=== PATIENT | female | born 1960 | race African-American/Black ===

== ENCOUNTER 2017-01-15 22:42 | Inpatient (IN) ==
[2017-01-15] MEDS ORDERED: ZOFRAN IV ONE (23:09)
[2017-01-15] MEDS ORDERED: NS 500 ML IV ONE (23:09)
[2017-01-15] MEDS ORDERED: DILAUDID IV ONE (23:09)
[2017-01-15 23:33] LABS: MANUAL DIFF NEEDED? NO
[2017-01-15 23:50] LABS: BASO% 0.4 % (0.0-0.8); EOS# 0.22 X1000 (0.0-0.7); EOS% 2.9 % (0.0-10.0); HEMATOCRIT 30.6 % (37.0-47.0); HEMOGLOBIN 9.8 g/dL (12.0-16.0); IMM GRAN# 0.01 X1000 (0.0-0.04); IMM GRAN% 0.1 % (0.0-0.5); LYMPH# 3.08 X1000 (1.2-3.4); LYMPH% 40.4 % (20.5-51.1); MCH 26.6 PG (27-31); MCV 82.9 FL (81-99); MONO% 10.5 % (1.7-9.3); MPV 9.1 FL (7.4-10.4); NEUT% 45.7 % (42.2-75.2); PLT 310 X1000 (130-400); RBC 3.69 XMIL (4.2-5.4)
[2017-01-16 00:04] LABS: ALBUMIN 4.3 g/dL (3.5-5.0); CALCIUM 9.5 mg/dL (8.8-10.2); POTASSIUM 4.3 mmol/L (3.5-5.1); TOTAL BILIRUBIN 0.3 mg/dL (0.20-1.00); TOTAL PROTEIN 8.1 g/dL (6.3-8.3)
[2017-01-16 00:53] LABS: BILIRUBIN URINE NEGATIVE (NEGATIVE); BLOOD URINE NEGATIVE (NEGATIVE); CLARITY CLEAR (CLEAR); COLOR YELLOW; GLUCOSE URINE NEGATIVE (NEGATIVE); LEUKOCYTES URINE NEGATIVE (NEGATIVE); NITRITE URINE NEGATIVE (NEGATIVE); PROTEIN URINE TRACE mg/dL (NEGATIVE); SP GRAVITY URINE 1.015; URINE EPITHELIAL CELLS <10 /HPF (<10); URINE RBC <10 /HPF (<10); URINE WBC <10 /HPF (<10); UROBILINOGEN URINE NORMAL
[2017-01-16 00:54] LABS: URINE CULTURE PL NEEDED? YES; URINE SOURCE CLEAN CATCH
[2017-01-16] MEDS ORDERED: ZOFRAN IV PRN (01:42)
[2017-01-16] MEDS ORDERED: NS 1,000 ML IV ONE (01:42)
--- NOTE | 2017-01-16 01:42 | PROVIDER DOCUMENTATION ---
This chart was entered by Laisha Barnes Scribe, acting as scribe for James Hernandez MD. HPI-Abdominal Pain/GI Problem - General Chief Complaint: Epigastric Pain Stated Complaint: ABD PAIN Time Seen by Provider: 01/15/17 22:57 Source: patient Allergies/Adverse Reactions: Patient Allergies Allergy/AdvReac Type Severity Reaction Status Date / Time No Known Allergies Allergy Verified 01/15/17 22:50 Home Medications: Home Medication List Medication Instructions Recorded Confirmed Last Taken Type Hydrocodone/APAP 7.5 mg/325 mg 01/05/17 01/15/17 History [[place]-7.5] Levothyroxine [Synthroid] 01/05/17 01/15/17 History Losartan/Hydrochlorothiazide 01/05/17 1 Day Ago History [Losartan-Hctz 100-12.5 mg Tab] ATORVAstatin [Lipitor] 20 mg PO QHS 01/15/17 01/15/17 1 Day Ago History Carisoprodol [Carisoprodol] 01/15/17 01/15/17 History Hydroxyzine HCl [Hydroxyzine HCl] 01/15/17 1 Day Ago History Meloxicam [Meloxicam] 01/15/17 01/15/17 History Metoprolol Succinate E.r. [Toprol 50 mg PO 01/15/17 01/15/17 History Xl] Venlafaxine [Effexor] 01/15/17 1 Day Ago History - History of Present Illness-ABD Nature of Presenting Problems: 56 year old F presents to the ED with a cc of epigastric ABD pain with an onset of 2 days ago with nausea and vomiting. PT states that at onset she had just started taking Mobic. PT states that she had 2 episodes of strenuous vomiting but has resolved. PT states that she is still having nausea. Abdominal Pain Onset Location: reports: epigastric Pain Radiation: reports: scapula (right) Quality of Pain: reports: throbbing Severity in ED: reports: moderate Onset/Duration: reports: 2 days ago Timing: reports: still present Activities at Onset: reports: none Modifying Factors: improves with: eating (eating ice) Associated Symptoms: reports: nausea, vomiting Bruising or Bleeding Gums?: No Similar Symptoms Previously?: No Recently seen or treated by another doctor?: No Review of Systems - Adult - REVIEW OF SYSTEMS - ADULT Constitutional: denies: chills, fever Eyes: reports: no symptoms reported Ears, Nose, Mouth & Throat: reports: no symptoms reported Cardiovascular: denies: chest pain, palpitations Respiratory: denies: cough, shortness of breath Gastrointestinal: reports: abdominal pain, nausea, vomiting. denies: diarrhea Genitourinary: denies: dysuria, hematuria Musculoskeletal: reports: no symptoms reported Integumentary: reports: no symptoms reported Neurological: reports: no symptoms reported Psychiatric: reports: no symptoms reported Endocrine: reports: no symptoms reported Hematologic/Lymphatic: reports: no symptoms reported Allergic/Immunologic: reports: no symptoms reported All Other Systems: Reviewed and Negative Past History - Adult - PAST MEDICAL HISTORY-ADULT Review of Records: reports: Nursing Assessment Review, Medications Reviewed Major Childhood Illnesses: reports: denies history Cardiovascular: reports: HTN Respiratory: reports: denies history Gastrointestinal: reports: denies history Obstetrical/Gynecological: reports: denies history Genitourinary: reports: denies history Musculoskeletal: reports: orthopedic injury Neurological: reports: denies history Endocrine/Immune: reports: Diabetes Other Conditions: reports: other (RA, migraines, chronic pain) - PRIOR SURGERIES/PROCEDURES Surgical/Procedure History: reports: hysterectomy, other (foot ) - IMMUNIZATION STATUS Childhood Immunizations: See Nurse Assessment Flu Vaccine: See Nurse Assessment - FAMILY HISTORY Family History: reviewed, not pertinent - SOCIAL HISTORY Smoking: non-smoker Substance Use: none/never Alcohol Use Frequency: never Physical Exam-General - PHYSICAL EXAM-ADULT Initial Vital Signs Reviewed: Yes - CONSTITUTIONAL General Appearance: appears well, alert, no apparent distress - RESPIRATORY Respiratory: chest non-tender, lungs clear, normal breath sounds - CARDIOVASCULAR Cardiovascular: normal peripheral pulses, regular rate, rhythm, no edema - GASTROINTESTINAL (ABDOMEN) Abdominal Exam: normal bowel sounds, soft, tenderness (RUQ) - MUSCULOSKELETAL Back Exam: normal inspection, no CVA tenderness, no vertebral tenderness - SKIN Integumentary: normal color, normal turgor, warm/dry - PSYCHIATRIC Psych/Mental Status: normal mood/affect, normal thought content, normal thought process, oriented x 3 Progress - PLAN OF CARE/RESULTS Progress/Plan/Lab Results: Vital Signs - 8 hr 01/15/17 22:48 Temperature 97.2 F L Pulse Rate 106 H Respiratory Rate 20 Blood Pressure 156/91 O2 Sat by Pulse Oximetry 100 Result Diagrams: 01/15/17 23:30 01/15/17 23:30 - REASSESSMENT Reassessment #1 Time Reassessed: 00:42 (pain much better) Status: improving - XRAY 1 XRAY Study: Abdomen Impression: Abnormal XRAY Interpretation: constipation, otherwise negative: Dr. Hernandez(ER MD) - CT/MRI 1 CT Study: Abdomen Impression: Normal Departure - Departure Date of Disposition Decision: 01/16/17 Time of Disposition Decision: 01:41 DIAGNOSIS: Pancreatitis Qualifiers: Chronicity: acute Pancreatitis type: unspecified pancreatitis type Acute pancreatitis complication: no infection or necrosis Qualified Code(s): K85.90 - Acute pancreatitis without necrosis or infection, unspecified Disposition: ADMITTED INPATIENT 09 Certified Medical Emergency: Emergent Condition: Good Referrals and Follow-Ups: Jos Cade MD [Primary Care Provider] - Work Excuses: Return to School/Parent Work - Critical Care Note This patient required my direct & personal management of CC.: No This chart was documented by the indicated scribe, (Laisha Barnes Scribe) and accurately reflects the services I performed and decisions made by me, James Hernandez MD, as attested by the provider's signature.
[2017-01-16] MEDS: DILAUDID IV PRN ×3 (02:26→17:26)
--- NOTE | 2017-01-16 07:36 | Diag Imaging Result Doc PS360 ---
EXAM: FLAT/UPRIGHT ABD/1 VIEW CHEST HISTORY: upper abd pain TECHNIQUE: PA chest and flat and upright abdomen COMMENT: There is some stool present in the colon particularly the ascending colon. The small bowel and stomach are not distended. There is no evidence of organomegaly or mass. Compared to 09/05/2016 the appearance of the abdomen is similar. CHEST: Normal chest. IMPRESSION: Constipation. Electronically signed by Rush Beckwith 01/16/2017 7:33 AM
--- NOTE | 2017-01-16 07:48 | Diag Imaging Result Doc PS360 ---
EXAM: ABDOMEN/PELVIS W/O CONTRAST HISTORY: pancreatitis/? GB TECHNIQUE: CT urogram without contrast. COMMENT: The current study is compared with the previous examination of 04/28/2015. No acute abnormalities are demonstrated in the visualized portion of the chest. There are no stones seen in the kidneys. No gallstones are identified. There is no evidence of para cholecystic fluid. Some of dense material is present in the colon, however there is no history of recent barium or oral contrast administration and this may be due to other ingested material. There is a fair amount of stool throughout the colon. The small bowel is not distended. There is no evidence of appendicitis. There is diverticulosis in the descending colon without evidence of diverticulitis. The urinary bladder is unremarkable. There is no evidence of free fluid. The pancreas is grossly normal considering the lack of IV contrast. IMPRESSION: No evidence of nephrolithiasis or obstructive uropathy. No evidence of cholelithiasis or cholecystitis. No evidence of pancreatitis, within the limitations of the noncontrast technique. Electronically signed by Rush Beckwith 01/16/2017 7:46 AM
--- NOTE | 2017-01-16 11:14 | Diag Imaging Result Doc PS360 ---
EXAM: US GB < RUQ (LIMITED) HISTORY: ruq pain TECHNIQUE: Right upper quadrant ultrasound COMMENT: There are no focal abnormalities in the pancreas. The visualized portions of the aorta and inferior vena cava are within normal limits. There are no definite hepatic abnormalities. There is no evidence of biliary dilatation the common bile duct measuring 5 mm. There is antegrade flow in the portal vein. The gallbladder is clear and nontender. The right kidney is without evidence of hydronephrosis or mass. No abnormal fluid collections are present. The kidney is somewhat hyperechoic in appearance. IMPRESSION: Possibility of medical renal disease cannot be excluded. Otherwise no evidence of acute disease. Electronically signed by Rush Beckwith 01/16/2017 11:12 AM
--- NOTE | 2017-01-16 11:50 | HISTORY AND PHYSICAL ---
PRIMARY CARE PHYSICIAN: Dr. Cade. CHIEF COMPLAINT: Right upper quadrant epigastric pain. HISTORY OF PRESENT ILLNESS: This is a 56-year-old, female who presented to the emergency room complaining of 2 days of epigastric pain, nausea, and vomiting. She states that she started taking Mobic at this time. She describes the pain as a squeezing and throbbing type pain that is just under her right ribcage that extends from the lower ribs across. She is tender to palpation. She states this is exacerbated by food. It does decrease in severity an hour so after eating. She states that over the day during the day prior to coming into the emergency room, she was unable to hold any p.o. intake down. She states that she had 2 episodes of strenuous vomiting. Of note, she did begin Mobic during those 2 days. She denies any prior history of abdominal pain. She was noted to have a lipase of 217. CT scan revealed no evidence of cholelithiasis or cholecystitis. No evidence of pancreatitis. She was given IV hydration and Zofran, and admitted for further evaluation and treatment. PAST MEDICAL HISTORY: Diabetes mellitus, hypertension, fibromyalgia. PAST SURGICAL HISTORY: Hysterectomy and back surgery. SOCIAL HISTORY: She denies alcohol, tobacco, or illicit drug use. ALLERGIES: No known drug allergies. HOME MEDICATIONS: A list will be obtained. REVIEW OF SYSTEMS: A 14 point review of systems is discussed with the patient with pertinent positives as stated in the HPI. She denies chest pain, palpitations, syncope, dizziness, shortness of breath, fever, chills, PND, orthopnea, black or bloody vomitus, constipation, diarrhea, black or bloody stools, any hematuria, dysuria, frequency, urgency. PHYSICAL EXAMINATION: GENERAL: This is a 56-year-old, female who is sitting up in the bed, in no distress. VITAL SIGNS: Blood pressure is 137/88, with a heart rate of 96, respirations are 18, temperature is 97.7 degrees, with room air saturations of 100%. HEENT: Head is normocephalic, atraumatic. Pupils are equal, round, and react to light. EOMs are intact. Sclerae are anicteric. Mucous membranes are moist. NECK: Supple. Trachea midline. CARDIOVASCULAR: Regular rate and rhythm. S1 and S2 are appreciated. PULMONARY: Breath sounds are clear with no increased work of breathing noted. GASTROINTESTINAL: Abdomen is soft, nondistended. It is tender to palpation at the right upper quadrant to the epigastric area with bowel sounds in all 4 quadrants. MUSCULOSKELETAL: Good range of motion of joints. EXTREMITIES: No clubbing, cyanosis, or edema. Calves are nontender. Pulses are palpable x4. NEUROLOGIC: She is alert and oriented x3 with cranial nerves 2-12 grossly intact. DIAGNOSTICS: WBC is 7.6, with a hemoglobin of 9.8, hematocrit of 30.6, and platelets of 310,000. Sodium is 135, potassium 4.3, BUN 38, creatinine 1.8, with a glucose of 158. Lipase is 217. CT scan revealed no acute abnormalities. Flat and upright revealed constipation. Chest x-ray was normal. ASSESSMENT AND PLAN: 1. Nausea and vomiting. She will remain nothing per oral. We will continue with intravenous hydration and intravenous antiemetics. 2. Right upper quadrant pain. She continues to be tender to palpation. The pain is waxing and waning. We will get an ultrasound of the gallbladder this morning. 3. Type 2 diabetes. 4. Hypothyroid. 5. Chronic pain. 6. Chronic kidney disease. 7. She will continue on the medical-surgical floor. We will continue with intravenous hydration, pain and nausea control. Her elevated lipase certainly could be from strenuous vomiting. We will repeat her labs and follow. Dictated by ANÍBAL Ahuja for Antonio Sanchez MD cc: ANÍBAL Ahuja MD
[2017-01-16] MEDS: PRILOSEC PO SCH ×2 (11:52→20:06)
[2017-01-16] MEDS ORDERED: G.I. COCKTAIL PO ONE (15:24)
[2017-01-16] MEDS: HUMALOG DOSE (PARKWAY) SUBQ SCH ×2 (16:06→21:47)
[2017-01-16] MEDS: CARAFATE LIQUID PO SCH (20:06)
[2017-01-17] MEDS: CARAFATE LIQUID PO SCH ×2 (01:09→08:46)
[2017-01-17] MEDS: DILAUDID IV PRN ×3 (01:12→06:36)
[2017-01-17 06:25] LABS: HEMATOCRIT 29.1 % (37.0-47.0); MCH 25.8 PG (27-31); MCHC 30.9 g/dL (33-37); MCV 83.4 FL (81-99); MPV 8.9 FL (7.4-10.4); RBC 3.49 XMIL (4.2-5.4)
[2017-01-17] MEDS: PRILOSEC PO SCH (06:30)
[2017-01-17 06:43] LABS: ALBUMIN 4.3 g/dL (3.5-5.0); CALCIUM 9.8 mg/dL (8.8-10.2); POTASSIUM 4.9 mmol/L (3.5-5.1); TOTAL BILIRUBIN 0.3 mg/dL (0.20-1.00); TOTAL PROTEIN 7.8 g/dL (6.3-8.3)
[2017-01-17] MEDS: HUMALOG DOSE (PARKWAY) SUBQ SCH ×2 (07:42→11:14)
[2017-01-17 08:15] VITALS: BP 139/75
--- NOTE | 2017-01-17 19:05 | DISCHARGE SUMMARY ---
ADMISSION DATE: 01/16/2017 DISCHARGE DATE: 01/17/2017 PRIMARY CARE PHYSICIAN: Jos Cade MD. ADMISSION DIAGNOSES: 1. Nausea and vomiting. 2. Right upper quadrant pain. 3. Diabetes type 2. 4. Hypothyroidism. 5. Chronic pain. 6. Chronic kidney disease. DISCHARGE DIAGNOSES: 1. Nausea and vomiting resolved. 2. Right upper quadrant pain improved. 3. Diabetes type 2. 4. Hypothyroidism. 5. Chronic pain. 6. Chronic kidney disease. SUMMARY OF FINDINGS: This is a 56-year-old, female who presented to the emergency room with complaints of a 2-day history of epigastric abdominal pain, nausea and vomiting. She states that she recently started Mobic and that the pain began a short time after beginning this. She described the pain as a squeezing and throbbing type pain underneath her right rib cage that extended from the lower ribs across. It was tender to palpation. It was exacerbated by food. She had a decrease in severity an hour so after eating and had 2 episodes of strenuous vomiting. She had a CT scan of the abdomen and pelvis that revealed no evidence of cholelithiasis or cholecystitis. No evidence of pancreatitis. She was given IV hydration, Zofran and admitted. We did an abdomen ultrasound that showed the possibility of a medical renal disease could not be excluded but otherwise no evidence of acute disease noted. Patient is tolerating her full liquid diet at this time with no further nausea or vomiting. It is felt this is most likely a gastroenteritis secondary to her Mobic. She has been instructed to not use any aspirin or NSAID products. Patient verbalizes understanding. She will need an outpatient GI workup and it is felt at this time she can safely be discharged home. We will give her a prescription for Carafate 1 g 4 times daily #120 with no refills and omeprazole 40 mg 1 p.o. b.i.d. #60 with 2 refills. She will continue her Lipitor 20 mg p.o. at bedtime, [place] 350 mg as directed, [place] 7.5 as directed, hydroxyzine 25 mg as directed, levothyroxine 200 mcg p.o. daily, losartan/hydrochlorothiazide 100/12.5, 1 p.o. daily, metoprolol 50 mg p.o. daily, Effexor 37.5 mg p.o. daily. FOLLOWUP: She will need to follow up with her primary care physician in 1-2 weeks and at that time they will discuss her outpatient GI workup. TOTAL TIME SPENT ON DISCHARGE: 35 minutes. Dictated by ANÍBAL Mckeon for Antonio Sanchez MD cc: ANÍBAL Mckeon MD Adnan A. Seljuki, MD
== END 2017-01-17 11:59 | disposition home or self-care (01) ==
LOC: P.ED 22:42 → P.MEDSURG 01-16 01:53
PROVIDERS: ATTEND Family Medicine

== ENCOUNTER 2017-05-01 20:16 | Inpatient (IN) ==
[2017-05-01] MEDS ORDERED: ASPIRIN PO ONE (20:27)
[2017-05-01 20:45] LABS: MANUAL DIFF NEEDED? NO
--- NOTE | 2017-05-01 20:47 | EKG Report ---
Test Performed on : 05/01/2017 8:43:22 PM Test Reason : palpitations Blood Pressure : / mmHG Vent. Rate : 111 BPM Atrial Rate : 111 BPM P-R Int : 154 ms QRS Dur : 070 ms QT Int : 336 ms P-R-T Axes : 044 -18 076 degrees QTc Int : 456 ms Sinus tachycardia. Minimal voltage criteria for LVH, may be normal variant Borderline ECG When compared with ECG of 19-DEC-2008 10:04, Vent. rate has increased BY 56 BPM Nonspecific T wave abnormality no longer evident in Inferior leads Nonspecific T wave abnormality, improved in Lateral leads Unconfirmed Result
[2017-05-01 20:51] LABS: BASO% 0.5 % (0.0-0.8); HEMATOCRIT 36.4 % (37.0-47.0); HEMOGLOBIN 11.8 g/dL (12.0-16.0); IMM GRAN# 0.01 X1000 (0.0-0.04); IMM GRAN% 0.1 % (0.0-0.5); MCH 25.9 PG (27-31); MCHC 32.4 g/dL (33-37); MONO# 0.79 X1000 (0.11-0.59); MONO% 7.9 % (1.7-9.3); MPV 9.5 FL (7.4-10.4); NEUT% 57.5 % (42.2-75.2); PLT 410 X1000 (130-400); RBC 4.55 XMIL (4.2-5.4)
[2017-05-01 21:20] LABS: ALBUMIN 4.4 g/dL (3.5-5.0); CALCIUM 9.9 mg/dL (8.8-10.2); MAGNESIUM 1.7 mg/dL (1.5-2.7); POTASSIUM 5.9 mmol/L (3.5-5.1); TOTAL BILIRUBIN 0.2 mg/dL (0.20-1.00); TOTAL PROTEIN 9.1 g/dL (6.3-8.3)
[2017-05-01] MEDS ORDERED: HUMULIN R (PARKWAY) SUBQ ONE (21:30)
[2017-05-01] MEDS ORDERED: HUMULIN R (PARKWAY) ONE (21:33)
[2017-05-01] MEDS ORDERED: LOPRESSOR IV ONE (21:53)
[2017-05-01] MEDS ORDERED: DILAUDID IV ONE (21:54)
--- NOTE | 2017-05-01 22:07 | Diag Imaging Result Doc PS360 ---
EXAM: CHEST-2 VIEWS HISTORY: palpitations cp TECHNIQUE: Two views COMPARISON: 01/15/2017 FINDINGS: The lungs are well expanded. The heart is not enlarged. The vessels are not distended. There are no infiltrates. No pleural effusions. IMPRESSION: No acute abnormality. Electronically signed by Pavan Kemp 05/01/2017 10:05 PM
[2017-05-01 22:29] LABS: BE -2.2 mmoll (-3.0-3.0); BLOOD TYPE ARTERIAL; DRAW SITE L RADIAL; METHB 1.2 % (0.0-1.5); O2(CT) 17.9 mL/dL (15.0-23.0); PCO2(98.6) 41 mmHg (35-45); PO2(98.6) 208 mmHg (60-100); SAMPLE BLOOD; SAO2 100.6 % (95.0-100.0); THB 12.7 g/dL (11.5-17.4); pH(98.6) 7.36 (7.35-7.45)
[2017-05-01 22:31] LABS: ALLEN TEST YES; MODALITY CANNULA
--- NOTE | 2017-05-01 23:09 | PROVIDER DOCUMENTATION ---
HPI-Chest Pain - General Chief Complaint: Palpitations Stated Complaint: CHEST PAIN/BLOOD PRESSURE Time Seen by Provider: 05/01/17 21:30 Source: patient Allergies/Adverse Reactions: Patient Allergies Allergy/AdvReac Type Severity Reaction Status Date / Time No Known Allergies Allergy Verified 01/15/17 22:50 Home Medications: Home Medication List Medication Instructions Recorded Confirmed Last Taken Type Hydrocodone/APAP 7.5 mg/325 mg 1 tab PO Q6H PRN 01/05/17 05/02/17 01/15/17 History [[place]-7.5] Levothyroxine [Synthroid] 175 mcg PO DAILY 01/05/17 05/01/17 01/15/17 History Losartan/Hydrochlorothiazide 100 mg PO DAILY 01/05/17 05/01/17 1 Day Ago History [Losartan-Hctz 100-12.5 mg Tab] Carisoprodol 1 tab PO TID PRN 01/15/17 05/01/17 01/15/17 History Hydroxyzine HCl 1 tab PO TID PRN 01/15/17 05/01/17 1 Day Ago History Venlafaxine [Effexor] 100 mg PO BID 01/15/17 05/01/17 1 Day Ago History Omeprazole [Prilosec] 40 mg PO BID@0700,2100 #60 capsule 01/17/17 05/01/17 Unknown Rx Sucralfate [Carafate] 1 gm PO 4XDAY #120 tablet 01/17/17 05/01/17 Unknown Rx Amlodipine [Norvasc] 1 tab PO DAILY 05/01/17 05/01/17 Unknown History Aspirin 1 tab PO DAILY 05/01/17 05/01/17 Unknown History Benzonatate [Tessalon [place]] 1 tab PO PRN PRN 05/01/17 05/01/17 Unknown History Ferrous Sulfate [[place]] 1 tab PO BID 05/01/17 05/01/17 Unknown History Fluticasone 50 Mcg Nasal [place] 1 spray IH DAILY 05/01/17 05/01/17 Unknown History [Flonase] Insulin Glargine,Hum.rec.anlog 30 units SQ DAILY 05/01/17 05/01/17 05/01/17 13: 30 History [Zhao Kirk] Loratadine [Claritin] 1 tab PO DIRECTED 05/01/17 05/01/17 Unknown History Metoprolol [Lopressor] 1 tab PO DAILY 05/01/17 05/01/17 Unknown History Ondansetron [Zofran] 1 tab PO Q4H PRN 05/01/17 05/01/17 Unknown History Pyridoxine HCl [Vitamin B-6] 1 tab PO DAILY 05/01/17 05/01/17 Unknown History Simethicone [Mytab Gas] 1 tab PO DIRECTED 05/01/17 05/01/17 Unknown History Sitagliptin Phos/Metformin HCl 1 tab PO BID 05/01/17 05/01/17 05/01/17 13:30 History [Janumet 50-1,000 mg Tablet] - History of Present Illness-CP Nature of Presenting Problem: Patient is a pleasant 56 y yrs old lady who has come with abdominal pain , chest pain and overall feeling weakness. She states that she was doing alright till Tuesday when she started having abdominal pain which was radiating to the chest. Then she started having pain radiated to the chest. Has been feeling some weakness and tiredness. No other complaint. Review of Systems - Adult - REVIEW OF SYSTEMS - ADULT Constitutional: reports: see HPI Eyes: reports: no symptoms reported Ears, Nose, Mouth & Throat: reports: no symptoms reported Cardiovascular: reports: see HPI Respiratory: reports: no symptoms reported Gastrointestinal: reports: no symptoms reported Past History - Adult - PAST MEDICAL HISTORY-ADULT Major Childhood Illnesses: reports: denies history Cardiovascular: reports: HTN Respiratory: reports: denies history Gastrointestinal: reports: denies history Obstetrical/Gynecological: reports: denies history Genitourinary: reports: denies history Musculoskeletal: reports: orthopedic injury Neurological: reports: denies history Endocrine/Immune: reports: Diabetes Other Conditions: reports: other (RA, migraines, chronic pain) - PRIOR SURGERIES/PROCEDURES Surgical/Procedure History: reports: hysterectomy, other (foot ) - IMMUNIZATION STATUS Childhood Immunizations: See Nurse Assessment Flu Vaccine: See Nurse Assessment - FAMILY HISTORY Family History: reviewed, not pertinent Physical Exam-General - CONSTITUTIONAL General Appearance: mild distress - EYES Eyes: PERRL/EOMI, pink conjunctivae - HEAD, EARS, NOSE, MOUTH & THROAT HENMT: normocephalic/atraumatic - NECK Neck: non-tender, full range of motion - RESPIRATORY Respiratory: chest non-tender, lungs clear - CARDIOVASCULAR Cardiovascular: regular rate, rhythm, no edema - GASTROINTESTINAL (ABDOMEN) Abdominal Exam: soft, tenderness, other - LYMPHATIC Lymphatic: no adenopathy - MUSCULOSKELETAL Back Exam: normal inspection, no CVA tenderness Extremity: normal range of motion, non-tender - SKIN Integumentary: normal color, normal turgor, warm/dry - NEUROLOGIC Neurologic: grossly normal - PSYCHIATRIC Psych/Mental Status: normal mood/affect, normal thought process, oriented x 3 Progress - PLAN OF CARE/RESULTS Progress/Plan/Lab Results: Laboratory Results - last 24 hr 05/02/17 00:45 Estimat Average Glucose 298 Hemoglobin A1c 12.0 H Orders Category Date Time Status Admit - [facility] Routine AdmDCTranf 05/02/17 00:37 Ordered Activity - Up Ad Olga ORDERED Care 05/02/17 00:37 Active Blood Glucose Finger Stick [FSBS/Accucheck Result] Q2HR Care 05/02/17 03:03 Active Call Admitting on Arrival AT ADMISSION Care 05/02/17 00:38 Active Cardiac Monitoring DIRECTED Care 05/01/17 20:27 Completed DVT/PE Risk Assess/Protocol [QM] ORDERED Care 05/02/17 00:37 Active Neurological Check ORDERED Care 05/02/17 00:37 Active Notify MD if DIRECTED Care 05/02/17 00:37 Active Nursing- Obtain EKG once Care 05/01/17 20:27 Completed Saline Loc DIRECTED Care 05/02/17 00:37 Active Vital Signs Order Q 4-HR ASSESS Care 05/02/17 00:37 Active Z-Document. for Tele Applied ORDERED Care 05/02/17 00:38 Completed NPO Diet 05/02/17 00:39 Completed CHEST-2 VIEWS [RAD] Stat Exams 05/01/17 20:27 Completed CHEST-2 VIEWS [RAD] Stat Exams 05/02/17 06:00 Completed ABG [RESP] Routine Lab 05/01/17 22:02 Completed ABG [RESP] Routine Lab 05/02/17 00:10 Completed CBC WITH DIFF [HEME] Stat Lab 05/01/17 20:41 Completed CBC WITH NO DIFF [HEME] Routine Lab 05/03/17 05:40 Received CK PROFILE [SP CHEM] Stat Lab 05/01/17 20:41 Completed COMPREHENSIVE METABOLIC PANEL [CHEM] Stat Lab 05/01/17 20:41 Completed COMPREHENSIVE METABOLIC PANEL [CHEM] Stat Lab 05/02/17 00:45 Completed D-DIMER PL [COAG] Stat Lab 05/01/17 20:41 Completed LIPID PROFILE W/DIR LDL [LIPIDS] Routine Lab 05/03/17 05:40 Received MAGNESIUM [CHEM] Stat Lab 05/01/17 20:41 Completed PRO B-NATRIURETIC PEPTIDE Routine Lab 05/03/17 05:40 Received PRO B-NATRIURETIC PEPTIDE Stat Lab 05/01/17 20:41 Completed TROPONIN T Q8H Lab 05/02/17 09:22 Completed TROPONIN T Q8H Lab 05/02/17 17:05 Completed TROPONIN T Stat Lab 05/01/17 20:41 Completed TROPONIN T Stat Lab 05/02/17 00:45 Completed 0.9% Sodium Chloride Inj [Ns] 1,000 ml Med 05/01/17 23:27 Discontinued .ROUTE As Directed 0.9% Sodium Chloride Inj [Ns] 1,000 ml Med 05/02/17 00:37 Discontinued IV 100 mls/hr 0.9% Sodium Chloride Inj [Ns] 1,000 ml Med 05/01/17 23:25 Discontinued IV 999 mls/hr Acetaminophen [Tylenol] Med 05/02/17 00:37 Active 650 mg PO Q6H PRN PRN Aspirin Med 05/01/17 20:27 Discontinued 325 mg PO NOW ONE Heparin Med 05/02/17 00:45 Active 5,000 unit SUBQ Q8HR Hydrocodone/APAP 7.5 mg/325 mg [[place]-7.5] Med 05/02/17 00:36 Discontinued 1 each PO NOW ONE Hydromorphone [Dilaudid] Med 05/01/17 21:54 Discontinued 0.5 mg IV NOW ONE Insulin Human Regular ([place] [Humulin R ([place])] Med 05/01/17 21:33 Discontinued 1 units .ROUTE .STK-MED ONE Insulin Human Regular ([place] [Humulin R ([place])] Med 05/01/17 21:30 Discontinued 6 units SUBQ NOW ONE Insulin Human Regular [Humulin R] Med 05/01/17 23:23 Discontinued 6 unit SUBQ NOW ONE Insulin Lispro [Humalog] Med 05/02/17 00:58 Discontinued See Dose Instructions SUBQ NOW ONE Metoprolol [Lopressor] Med 05/01/17 21:53 Discontinued 5 mg IV NOW ONE Nitroglycerin Sl [Nitroglycerin] Med 05/02/17 00:37 Active 0.4 mg SL Q5M PRN PRN Omeprazole [Prilosec] Med 05/02/17 07:00 Discontinued 20 mg PO DAILY@0700 Ondansetron [Zofran] Med 05/02/17 00:37 Active 4 mg IV Q4H PRN PRN Oxygen Device Routine Oth 05/02/17 00:37 Active Oxygen Device Routine Oth 05/02/17 00:38 Active Telemetry [OM.EQ] Routine Oth 05/02/17 00:37 Active Telemetry [OM.EQ] Routine Oth 05/02/17 00:37 Active EKG [EKG] Stat Ther 05/01/17 20:27 Draft Echo Spec/Color Dop W/O Contra Routine Ther 05/02/17 00:37 Completed Transfer/Admit Order [TRANSFER] Routine Transfer 05/02/17 00:42 Completed Admitting patient for the Chest pain rule out and Hyperglycemia and GRACIA. Given IV fluid here and total of 12 Units of Insulin Regular here. Checking CMP , result pending. Had discussed with Dr. Sanchez and he had agreed for admission . Dr. Osei will follow up on the labs and then admit plan finalized accordingly . 1:10 am05/02 . Result Diagrams: 05/01/17 20:41 05/02/17 17:05 Departure - Departure Date of Disposition Decision: 05/02/17 Time of Disposition Decision: 01:00 DIAGNOSIS: Chest pain, Hyperglycemia Disposition: ADMITTED INPATIENT 09 Certified Medical Emergency: Urgent Condition: Stable - Critical Care Note This patient required my direct & personal management of CC.: No Attestation - Physician/ NICKY Attestation Patient care was provided by Advanced Practice Provider:: No The physician spent face to face time with patient:: Yes Advanced Practice Provider documentation review:: Supervising physician onsite and consulted in the evaluation and care of this patient. The physician did have a face to face encounter with the patient.
[2017-05-01] MEDS ORDERED: HUMULIN R SUBQ ONE (23:23)
[2017-05-01] MEDS ORDERED: NS 1,000 ML IV ONE (23:25)
[2017-05-01] MEDS ORDERED: NS 1,000 ML ONE (23:27)
[2017-05-02 00:36] LABS: BE -5.3 mmoll (-3.0-3.0); BLOOD TYPE ARTERIAL; DRAW SITE R RADIAL; O2(CT) 14.7 mL/dL (15.0-23.0); PCO2(98.6) 37 mmHg (35-45); PO2(98.6) 174 mmHg (60-100); SAMPLE BLOOD; SAO2 100.7 % (95.0-100.0); THB 10.4 g/dL (11.5-17.4); pH(98.6) 7.34 (7.35-7.45)
[2017-05-02] MEDS ORDERED: NORCO-7.5 PO ONE (00:36)
[2017-05-02] MEDS ORDERED: NS 1,000 ML IV ONE (00:37)
[2017-05-02] MEDS ORDERED: ZOFRAN IV PRN ×2 (00:37)
[2017-05-02] MEDS ORDERED: TYLENOL PO PRN (00:37)
[2017-05-02] MEDS ORDERED: NITROGLYCERIN SL PRN (00:37)
[2017-05-02 00:39] LABS: ALLEN TEST YES; MODALITY CANNULA
[2017-05-02] MEDS ORDERED: HUMALOG SUBQ ONE (00:58)
--- NOTE | 2017-05-02 01:05 | ED EKG INTERP ---
This chart was entered by Sanjuana Romero Scribe, acting as scribe for Maxx May MD. EKG Interpretation - EKG Time of EKG reading by physician:: 20:43 EKG Read and Signed by:: Maxx May EKG Interpretation (*Must complete 3 of following elements*): Abnormal Rate: 111 Rhythm: sinus tachycardia Comments: borderline ECG Attestation - Physician/ NICKY Attestation Patient care was provided by Advanced Practice Provider:: No The physician spent face to face time with patient:: Yes Advanced Practice Provider documentation review:: Supervising physician onsite and consulted in the evaluation and care of this patient. The physician did have a face to face encounter with the patient. This chart was documented by the indicated scribe, (Sanjuana Romero Scribe) and accurately reflects the services I performed and decisions made by me, Maxx May MD, as attested by the provider's signature.
--- NOTE | 2017-05-02 01:06 | ED EKG INTERP ---
This chart was entered by Sanjuana Romero Scribe, acting as scribe for Maxx May MD. EKG Interpretation - EKG Time of EKG reading by physician:: 00:44 EKG Read and Signed by:: Maxx May EKG Interpretation (*Must complete 3 of following elements*): Normal Rate: 82 Rhythm: normal sinus rhythm [place]: normal QRS: normal [place] Interval: normal ST Wave: normal Comments: borderline ECG Attestation - Physician/ NICKY Attestation Patient care was provided by Advanced Practice Provider:: No The physician spent face to face time with patient:: Yes Advanced Practice Provider documentation review:: Supervising physician onsite and consulted in the evaluation and care of this patient. The physician did have a face to face encounter with the patient. This chart was documented by the indicated scribe, (Sanjuana Romero Scribe) and accurately reflects the services I performed and decisions made by me, Maxx May MD, as attested by the provider's signature.
[2017-05-02 01:57] LABS: ALBUMIN 3.8 g/dL (3.5-5.0); CALCIUM 8.7 mg/dL (8.8-10.2); POTASSIUM 5.5 mmol/L (3.5-5.1); TOTAL BILIRUBIN 0.2 mg/dL (0.20-1.00)
[2017-05-02] MEDS ORDERED: HUMULIN R SUBQ ONE (02:11)
[2017-05-02] MEDS ORDERED: HUMULIN R (PARKWAY) ONE (02:16)
[2017-05-02] MEDS: TYLENOL PO PRN ×2 (04:06→12:00)
[2017-05-02] MEDS: HEPARIN SUBQ SCH ×4 (04:06→22:03)
[2017-05-02] MEDS ORDERED: PRILOSEC PO SCH (07:00)
--- NOTE | 2017-05-02 08:08 | Diag Imaging Result Doc PS360 ---
CHEST-2 VIEWS - 05/02/2017 INDICATION: Chest Pain TECHNIQUE: COMPARISON: 05/01/2017 FINDINGS: There is some trace linear atelectasis at the left lateral costophrenic angle. Otherwise no significant infiltrates. No pneumothorax or pleural effusion. Heart size and pulmonary vascularity is normal. IMPRESSION: No specific acute disease. Electronically signed by Marcel Guaman 05/02/2017 8:06 AM
[2017-05-02] MEDS ORDERED: HYDROXYZINE PO PRN (08:22)
[2017-05-02] MEDS ORDERED: TESSALON PO PRN (08:22)
[2017-05-02] MEDS ORDERED: ZOFRAN ODT PO PRN (08:22)
[2017-05-02] MEDS ORDERED: MYLICON PO PRN (08:30)
[2017-05-02] MEDS ORDERED: CLARITIN PO PRN (08:30)
[2017-05-02] MEDS ORDERED: ASPIRIN PO SCH (09:00)
[2017-05-02] MEDS: GLUCOPHAGE PO SCH ×2 (09:25→16:14)
[2017-05-02] MEDS: ASPIRIN PO SCH (09:25)
[2017-05-02] MEDS: SYNTHROID PO SCH ×2 (09:25→09:27)
[2017-05-02] MEDS: CARAFATE PO SCH ×4 (09:25→22:04)
[2017-05-02] MEDS: FERROUS SULFATE PO SCH ×2 (09:26→22:04)
[2017-05-02] MEDS: COZAAR PO SCH (09:26)
[2017-05-02] MEDS: NORVASC PO SCH (09:26)
[2017-05-02] MEDS: LOPRESSOR PO SCH (09:26)
[2017-05-02] MEDS: PYRIDOXINE PO SCH (09:26)
[2017-05-02] MEDS: JANUVIA PO SCH ×2 (09:26→16:15)
[2017-05-02] MEDS: HYDROCHLOROTHIAZIDE PO SCH (09:26)
[2017-05-02] MEDS: TOUJEO SOLOSTAR SUBQ SCH (09:29)
[2017-05-02] MEDS: EFFEXOR PO SCH ×2 (09:30→22:06)
[2017-05-02] MEDS: NORCO-7.5 PO PRN ×3 (10:06→22:05)
[2017-05-02 10:53] LABS: BILIRUBIN URINE NEGATIVE (NEGATIVE); BLOOD URINE NEGATIVE (NEGATIVE); CLARITY CLEAR (CLEAR); COLOR YELLOW; LEUKOCYTES URINE NEGATIVE (NEGATIVE); NITRITE URINE NEGATIVE (NEGATIVE); PROTEIN URINE TRACE mg/dL (NEGATIVE); SP GRAVITY URINE 1.015; URINE CULTURE PL NEEDED? NO; URINE EPITHELIAL CELLS >10 /HPF (<10); URINE SOURCE CLEAN CATCH; URINE WBC <10 /HPF (<10); UROBILINOGEN URINE NORMAL
[2017-05-02 17:33] LABS: ALBUMIN 3.5 g/dL (3.5-5.0); CALCIUM 8.5 mg/dL (8.8-10.2); MAGNESIUM 1.5 mg/dL (1.5-2.7); TOTAL BILIRUBIN 0.2 mg/dL (0.20-1.00); TOTAL PROTEIN 7.3 g/dL (6.3-8.3)
[2017-05-02] MEDS: NS 1,000 ML IV SCH (17:39)
--- NOTE | 2017-05-02 18:42 | HISTORY AND PHYSICAL ---
PRIMARY CARE PHYSICIAN: Jos Cade MD. CHIEF COMPLAINT: Abdominal pain. HISTORY OF PRESENT ILLNESS: This is a 56-year-old, female who presented to the emergency room stating that she felt like she had a lump in her throat as well as epigastric pain. She stated this started 3 days prior. It did start as epigastric pain. It did radiate to her lower chest. She did have some generalized weakness along with these symptoms. The patient does have a history of being hospitalized on January. At that time she had some strenuous vomiting and did have an elevated lipase. Once the vomiting ceased her lipase did return to normal. At this time she was encouraged to follow up with GI which she did not. She has followed up with her primary care physician. In the emergency room she was found to have a sodium of 127 with a potassium of 5.9, blood sugar of 438, and a creatinine of 2.1 for which she was given IV hydration as well as IV insulin. Blood pressures and heart rates were elevated at this time for which she was given IV Lopressor. Blood pressures did go from the 140s/100s down to the 120s to 130s/80s to 90s. Heart rates were 120-130 before Lopressor. They have decreased to the 70s to 80s since Lopressor as well as IV hydration. PAST MEDICAL HISTORY: Diabetes mellitus, noncompliant with a hemoglobin A1c of 12, chronic kidney disease with a creatinine ranging 1.2 to 1.7, hypothyroidism, chronic pain. PAST SURGICAL HISTORY: Hysterectomy and back surgery. SOCIAL HISTORY: She denies alcohol, tobacco, or illicit drug use. ALLERGIES: No known drug allergies. HOME MEDICATIONS: A list will be obtained. REVIEW OF SYSTEMS: A 14 point review of systems was discussed with patient with pertinent positives as stated in HPI. She denied shortness of breath, syncope, cough, fever, chills, recent weight loss or weight gain, nausea, vomiting, diarrhea, constipation, any black or bloody vomitus, black or bloody stools, hematuria, dysuria, frequency or urgency. PHYSICAL EXAMINATION: GENERAL: This is a 56-year-old, female who is sitting on the side of the bed in no distress. VITAL SIGNS: Blood pressure is 120/80 with a heart rate of 80, respirations 18, temperature 97.6 degrees with O2 saturation of 100% on 2 L nasal cannula. HEENT: Head is normocephalic, atraumatic. Pupils equal, round, react to light. EOMs are intact. Sclerae anicteric. Mucous membranes are moist. NECK: Supple. Trachea midline. CARDIOVASCULAR: Regular rate and rhythm. S1 and S2 appreciated. PULMONARY: Breath sounds are clear with no increased work of breathing noted. Chest does rise and fall symmetrically with respiration. GASTROINTESTINAL: Abdomen soft, nondistended. She does have epigastric tenderness to palpation with bowel sounds positive in all 4 quadrants. BACK: No CVAT. No spine tenderness. MUSCULOSKELETAL: Good range of motion of joints. EXTREMITIES: No clubbing, cyanosis, or edema. Pulses are palpable x4. Calves are nontender. NEUROLOGIC: She is alert and oriented x3. DIAGNOSTICS: WBC is 10 with a hemoglobin 11.8, hematocrit 36.4, platelets 410,000. Sodium is 127, potassium 5.9, BUN 41, creatinine 2.1 with a glucose of 438. Repeat labs: Sodium 133, potassium 5.5, BUN 43, creatinine 2.1 with a glucose of 308. Troponins are negative on multiple occasions. Chest x-ray revealed no acute processes. ASSESSMENT AND PLAN: 1. Type 2 diabetes, noncompliant with hemoglobin A1c greater than 12. 2. Epigastric pain. 3. Hyponatremia. 4. Hyperkalemia. 5. Acute kidney injury on chronic kidney disease. 6. Hyperglycemia. 7. Hypothyroid. PLAN: She will be admitted to the hospital and placed on telemetry. We will give gentle hydration. We will repeat her labs. Identify home medications and continue as appropriate. We will check a TSH. We will hold any renal toxic medications and dose renally as appropriate. Pattern blood glucose with sliding scale insulin. I did discuss with the patient the importance of being compliant with her diabetes management. We did discuss end organ damage including but not limited to eyes, heart, kidneys, as well as peripheral extremities. We did discuss once again, as in January, that the abdominal pain could be gastroparesis secondary to diabetes, elevated A1c with the importance of outpatient followup with GI. Further treatments pending hospital course. Dictated by ANÍBAL Ahuja for Antonio Sanchez MD cc: ANÍABL Ahuja MD Adnan A. Seljuki, MD
--- NOTE | 2017-05-02 19:07 | PROGRESS NOTE ---
DATE: 05/02/2017 ADDENDUM: The patient seen and examined by me. Full note dictated and discussed with nurse practitioner. The patient notes that she is having some chest pain, although this is improved. She is having some epigastric abdominal pain. States this is similar to her previous episode of epigastric abdominal pain that she was seen in the hospital for. At that point, she did not follow up with GI when she was discharged home. PHYSICAL EXAMINATION: Essentially benign.Lungs: Clear. Abdomen: Soft. She is diffusely tender in the abdomen. Positive bowel sounds. PLAN: We will admit patient to the hospital. Will control her blood sugars. Certainly expect that she has some amount of diabetic gastroparesis, as she notes that her blood sugar frequently runs high on her meter. Discussed with patient the importance of diabetic control. Please see full dictation. cc: Antonio Sanchez MD
[2017-05-02] MEDS: PRILOSEC PO SCH (22:05)
[2017-05-03] MEDS: HEPARIN SUBQ SCH ×3 (04:15→21:49)
[2017-05-03] MEDS: NORCO-7.5 PO PRN ×2 (04:15→11:35)
[2017-05-03] MEDS: NS 1,000 ML IV SCH ×2 (04:23→15:21)
[2017-05-03] MEDS: PRILOSEC PO SCH ×2 (06:29→21:50)
[2017-05-03] MEDS: SYNTHROID PO SCH ×2 (06:29)
[2017-05-03 06:31] LABS: HEMATOCRIT 28.1 % (37.0-47.0); HEMOGLOBIN 8.6 g/dL (12.0-16.0); MCH 25.5 PG (27-31); MCHC 30.6 g/dL (33-37); MCV 83.4 FL (81-99); MPV 9.4 FL (7.4-10.4); RBC 3.37 XMIL (4.2-5.4)
[2017-05-03 06:41] LABS: AGAP 8; ALBUMIN 3.4 g/dL (3.5-5.0); ALKALINE PHOSPHATASE 92 U/L (32-104); BUN 27 mg/dL (8-22); CALCIUM 8.8 mg/dL (8.8-10.2); CHLORIDE 105 mmol/L (98-107); COSMO 283; GOT 18 U/L (10-30); GPT 12 U/L (10-36); MAGNESIUM 1.6 mg/dL (1.5-2.7); POTASSIUM 5.2 mmol/L (3.5-5.1); SODIUM 135 mmol/L (136-145); TCO2 22 mmol/L (25-35); TOTAL BILIRUBIN < 0.15 mg/dL (0.20-1.00); TOTAL PROTEIN 6.8 g/dL (6.3-8.3)
[2017-05-03] MEDS ORDERED: INSULIN PEN NEEDLES ONE (08:32)
[2017-05-03] MEDS: PYRIDOXINE PO SCH (08:34)
[2017-05-03] MEDS: EFFEXOR PO SCH ×2 (08:34→21:50)
[2017-05-03] MEDS: TOUJEO SOLOSTAR SUBQ SCH (08:34)
[2017-05-03] MEDS: HYDROCHLOROTHIAZIDE PO SCH (08:35)
[2017-05-03] MEDS: NORVASC PO SCH (08:35)
[2017-05-03] MEDS: COZAAR PO SCH (08:35)
[2017-05-03] MEDS: JANUVIA PO SCH ×2 (08:35→17:26)
[2017-05-03] MEDS: ASPIRIN PO SCH (08:35)
[2017-05-03] MEDS: LOPRESSOR PO SCH (08:35)
[2017-05-03] MEDS: CARAFATE PO SCH ×4 (08:36→21:50)
[2017-05-03] MEDS: GLUCOPHAGE PO SCH ×2 (08:36→17:26)
[2017-05-03] MEDS: FERROUS SULFATE PO SCH ×2 (08:36→21:51)
--- NOTE | 2017-05-03 10:06 | ECHO REPORT ---
ORDER DATE: 05/02/2017 INTERPRETING PHYSICIAN: Case Tello MD. INDICATION: A 56-year-old female with chest pain, hypertension. M-MODE MEASUREMENTS: Right ventricle end diastole: 2.5 cm. Left ventricle end diastole: 3.6 cm. Left ventricle end systole: 2.2 cm. Posterior wall: 1.2 cm. Interventricular septum: 1.2 cm. Left atrium: 2.9 cm. Aortic root: 2.9 cm. SUMMARY OF 2-DIMENSIONAL IMAGIN. The left ventricular function is normal. Ejection fraction is 64%. 2. The right ventricle is normal. 3. The aortic valve looks normal. Color flow mapping indicates trace of regurgitation. 4. The mitral valve looks normal. Color flow mapping indicates trace of regurgitation. Pulsed wave Doppler of mitral inflow is normal. The tissue Doppler of septal and lateral mitral annulus averages 7 cm. Pulmonary venous flow is normal. There is no diastolic dysfunction. 5. The tricuspid valve shows a trace of regurgitation. Inferior vena cava is not dilated. The pulmonary pressure is estimated at 28 mmHg. 6. The pulmonic valve is normal. Color flow mapping unremarkable. 7. There is no pericardial effusion, masses, nor thrombus. SUMMARY: In summary, this study shows: 1. Normal left ventricular systolic function. 2. No evidence of diastolic dysfunction. 3. No evidence of any significant valvular abnormality. 4. Pulmonary pressure estimated at 28 mmHg. Clinical correlation recommended. cc: MD Maxx Downey MD Gregory S. Cheatham, MD
[2017-05-03] MEDS ORDERED: REGLAN IV SCH (12:45)
--- NOTE | 2017-05-03 13:30 | PROGRESS NOTE ---
DATE: 05/03/2017 SUBJECTIVE: Ms. Romero continues to have some epigastric pain for which she is taking [place] q.6 hours. She denies any nausea, vomiting, shortness of breath, or palpitations. OBJECTIVE: Vital Signs: Blood pressure is 123/70 with a heart rate of 66, respirations 18, temperature 97.7 degrees oral with O2 saturation of 100% on 2 L nasal cannula. Cardiovascular: Regular rate and rhythm. S1, S2 appreciated. Pulmonary: Breath sounds are clear. No increased work of breathing noted. Gastrointestinal: Abdomen is soft, nontender, nondistended. Bowel sounds in all 4 quadrants. Neurologic: She is alert and oriented x3. DIAGNOSTICS: WBC is 5.7 with hemoglobin 8.6, hematocrit 28.1, and platelets of 280,000. Sodium is 135, potassium 5.2. BUN 27, creatinine 1.2 with a glucose of 219. ASSESSMENT AND PLAN: 1. Type 2 diabetes, noncompliant, with a hemoglobin A1c greater than 12. 2. Epigastric pain. 3. Hyponatremia. 4. Hyperkalemia. 5. Acute kidney anjxiy-gb-xkrrudn kidney disease. 6. Hyperglycemia. 7. Hypothyroid. We will continue with her current treatment at her current medication regimen. As stated before, the patient has had this chronic epigastric pain. After her last admission, she did not follow up with GI as instructed. She has had no formal workup. Gastroparesis could very well be a component given her A1c, and her uncontrolled diabetes. We will start Reglan IV and see if that helps symptoms. Dictated by ANÍBAL Ahuja for Surinder Quinn MD cc: ANÍBAL Ahuja MD
--- NOTE | 2017-05-03 17:53 | PROGRESS NOTE ---
DATE: 05/03/2017 ADDENDUM: SUBJECTIVE: Nausea, vomiting seems to be somewhat improved. OBJECTIVE: Her abdominal examination was soft, nontender, nondistended. Bowel sounds are positive. ASSESSMENT: I do think gastroparesis is a concern we have started Reglan. I am just going to hold that even knows that is an excellent idea until we complete her gastric emptying study, which I do not think has been done here at this point. We will continue diabetic control and follow. DISPOSITION: Pending her clinical status. This is a [id number] encounter. Patient seen in conjunction with Zahra Ha. cc: Surinder Quinn MD
[2017-05-04] MEDS: NS 1,000 ML IV SCH ×2 (03:53→16:13)
[2017-05-04 06:36] LABS: HEMATOCRIT 27.2 % (37.0-47.0); HEMOGLOBIN 8.3 g/dL (12.0-16.0); MCH 25.3 PG (27-31); MCHC 30.5 g/dL (33-37); MCV 82.9 FL (81-99); RBC 3.28 XMIL (4.2-5.4)
[2017-05-04] MEDS: HEPARIN SUBQ SCH ×2 (07:44→14:20)
[2017-05-04 07:45] LABS: CALCIUM 9.8 mg/dL (8.8-10.2); POTASSIUM 4.7 mmol/L (3.5-5.1)
--- NOTE | 2017-05-04 11:18 | Diag Imaging Result Doc PS360 ---
EXAM: GASTRIC EMPTYING HISTORY: n/v TECHNIQUE: 588 uCi of technetium sulfur colloid taken with oatmeal COMPARISON: None. FINDINGS: Imaging for two hours performed. T1/2 equals 45 minutes. This is borderline quick emptying. No other abnormality. IMPRESSION: Borderline quick emptying from the stomach. Electronically signed by Pavan Kemp 05/04/2017 11:16 AM
[2017-05-04] MEDS: ASPIRIN PO SCH (11:23)
[2017-05-04] MEDS: JANUVIA PO SCH ×2 (11:24→16:11)
[2017-05-04] MEDS: CARAFATE PO SCH ×3 (11:24→15:32)
[2017-05-04] MEDS: NORCO-7.5 PO PRN ×2 (11:24→16:11)
[2017-05-04] MEDS: FERROUS SULFATE PO SCH (11:24)
[2017-05-04] MEDS: EFFEXOR PO SCH (11:24)
[2017-05-04] MEDS: NORVASC PO SCH (11:24)
[2017-05-04] MEDS: LOPRESSOR PO SCH (11:24)
[2017-05-04] MEDS: PYRIDOXINE PO SCH (11:24)
[2017-05-04] MEDS: TOUJEO SOLOSTAR SUBQ SCH ×2 (11:26→15:32)
[2017-05-04] MEDS: PRILOSEC PO SCH (14:24)
[2017-05-04] MEDS: SYNTHROID PO SCH ×2 (14:24)
[2017-05-04] MEDS: GLUCOPHAGE PO SCH ×2 (14:25→16:11)
[2017-05-04 16:10] VITALS: BP 118/75
--- NOTE | 2017-05-04 18:25 | DISCHARGE SUMMARY ---
ADMISSION DATE: 05/02/2017 DISCHARGE DATE: ADDENDUM REPORT DISCHARGE DIAGNOSES: 1. Irritable bowel syndrome, constipation predominant. 2. Uncontrolled diabetes. HOSPITAL COURSE: Briefly, patient admitted for abdominal pain. Patient of Dr. Cade. She has very significant noncompliance with her diabetic medications. Her A1c is 12. She had epigastric pain. Her workup though was really unremarkable. She had an echocardiogram that was normal. EF was 64%. Clinically she looked fine. Her diet was advanced. Reglan was started for possible gastroparesis. We got a gastric emptying study that actually showed borderline quick emptying. It seemed to be stable. In any case she was felt stable for discharge on the . Discharged on her regular medications. I would consider giving her some Linzess since she has got some issues with constipation, prominent IBS. She needs to follow up with Dr. Ellis, her discharge physician. Abdominal examination was benign. This was a [id number] encounter in conjunction with nurse practitioner. cc: Surinder Quinn MD
--- NOTE | 2017-05-05 04:27 | DISCHARGE SUMMARY ---
ADMISSION DATE: 05/02/2017 DISCHARGE DATE: 05/04/2017 DIAGNOSES: 1. Type 2 diabetes, noncompliance with a hemoglobin A1c greater than 12. 2. Epigastric pain. 3. Hyponatremia resolved. 4. Hyperkalemia resolved. 5. Acute kidney injury on chronic kidney disease resolved. 6. Hypothyroid. DIAGNOSTICS: 1. 05/01/2017 chest x-ray revealed no acute abnormality. 2. 05/02/2017 echocardiogram revealed normal left ventricular systolic function. No evidence of diastolic dysfunction. No evidence of any significant valvular abnormality. EF was 64%. 3. 05/02/2017. Chest x-ray reveals no acute disease. 4. 05/04/2017 Gastric emptying nuclear medicine borderline quick emptying from the stomach with a T1 half 45 minutes with imaging performed for 2 hours. HOSPITAL COURSE: The patient presented to the emergency room complaining of epigastric pain that had been present for 3 days along with some generalized weakness. She does have a history of this being hospitalized for the same in January. At that time on discharge she was encouraged to have GI follow up which she chose not to do. These symptoms are consistent with previous symptoms. She was found to have a hemoglobin A1c greater than 12 as well as a sodium of 127 and potassium of 5.9. With the IV hydration, sodium did increase over the 3 days and is now 140. Potassium has decreased to 4.7-5. Blood glucose was 438 on admission and it has decreased to it looks like 214- 250 range. This was continuing her home medication doses during hospitalization. She has a baseline creatinine it looks like about 1.5. On admission, she was 2.1. After hydration, she has been 1-1.2. As there is a chance of gastroparesis due to her elevated A1c noncompliance with diabetes, we did do a gastric emptying study and she was found to have rather quick emptying with 45 minutes. She has tolerated a diabetic diet with no difficulty and likely is ready for discharge. PHYSICAL EXAMINATION: Cardiovascular: Regular rate and rhythm. S1, S2 appreciated. Pulmonary: Breath sounds are clear. No increased work of breathing noted. Gastrointestinal: Abdomen is soft, nontender, and nondistended with bowel sounds in all 4 quadrants. Extremities: No clubbing, cyanosis, or edema. Calves nontender. Pulses are palpable x4. DISCHARGE MEDICATIONS: 1. [place] 7.5 q.6 hours p.r.n. 2. Prilosec 40 b.i.d. 3. Vitamin B6 daily. 4. Flonase 1 spray daily. 5. Tessalon Perles as needed. 6. Zofran as needed. 7. Hydroxyzine 1 tab 3 times a day as needed. 8. Soma 1 tab daily. 9. Aspirin 81 mg daily. 10. Effexor 100 mg b.i.d. 11. Lopressor 50 mg daily. 12. Ferrous sulfate 1 tab b.i.d. 13. Carafate 1 g 4 times a day. 14. Norvasc 10 mg daily. 15. Mylicon as needed. 16. Levothyroxine 175 mcg daily. 17. Losartan hydrochlorothiazide 100/12.5 daily. 18. Janumet b.i.d. 19. Toujeo insulin 30 units daily. 20. Linzess daily. DISCHARGE DIET: Diabetic. FOLLOWUP: 1. She is to followup with Dr. Ellis as previously scheduled. 2. Dr. Cade in the next 1-2 weeks. She is being discharged home in stable condition with family members. TIME SPENT: This is a greater than 30 minute discharge. Dictated by ANÍBAL Ahuja for Surinder Quinn MD cc: ANÍBAL Ahuja MD
== END 2017-05-04 19:55 | disposition home or self-care (01) ==
LOC: P.ED 20:16 → P.MEDSURG 05-02 01:33 → SUATTDRO 05-02 01:33 → P.MEDSURG 05-04 02:15
PROVIDERS: ADMIT Internal Medicine; ATTEND Internal Medicine

== ENCOUNTER 2019-03-04 12:24 | Inpatient (IN) ==
[2019-03-04 12:57] LABS: BASO# 0.05 X1000 (0.0-0.2); BASO% 0.6 % (0.0-0.8); EOS# 0.16 X1000 (0.0-0.7); EOS% 2.1 % (0.0-10.0); HEMATOCRIT 32.9 % (37.0-47.0); HEMOGLOBIN 11.1 g/dL (12.0-16.0); IMM GRAN# 0.01 X1000 (0.0-0.04); IMM GRAN% 0.1 % (0.0-0.5); LYMPH# 3.09 X1000 (1.2-3.4); MCHC 33.7 g/dL (33-37); MCV 82.9 FL (81-99); MONO# 0.63 X1000 (0.11-0.59); MONO% 8.2 % (1.7-9.3); MPV 9.7 FL (7.4-10.4); NEUT# 3.79 X1000 (1.4-6.5); PLT 317 X1000 (130-400); RBC 3.97 XMIL (4.2-5.4); RDW 13.6 % (11.5-14.5); WBC 7.73 X1000 (4.8-10.8)
[2019-03-04 13:11] LABS: POTASSIUM 5.1 mmol/L (3.5-5.1)
[2019-03-04 13:12] LABS: ALBUMIN 4.7 g/dL (3.5-5.0); CALCIUM 9.7 mg/dL (8.8-10.2); CREATININE 2.5 mg/dL (0.5-0.9); TOTAL BILIRUBIN 0.3 mg/dL (0.20-1.00); TOTAL PROTEIN 8.1 g/dL (6.3-8.3)
[2019-03-04] MEDS ORDERED: HUMULIN R IV ONE (13:26)
[2019-03-04] MEDS ORDERED: NS 1,000 ML IV ONE ×2 (13:26→14:15)
[2019-03-04] MEDS ORDERED: HUMULIN R (PARKWAY) ONE (13:26)
[2019-03-04] MEDS ORDERED: LANTUS INSULIN SUBQ SCH (14:37)
[2019-03-04] MEDS ORDERED: ZOFRAN IV PRN (14:37)
[2019-03-04] MEDS ORDERED: TYLENOL PO PRN (14:37)
[2019-03-04 14:56] LABS: HEMOGLOBIN A1C 14.9 % (4.8-6.0)
--- NOTE | 2019-03-04 15:28 | HISTORY AND PHYSICAL ---
PRIMARY CARE PHYSICIAN: Dr. Cade. CHIEF COMPLAINT: Of an elevated blood sugar for the past 2 days that has progressively worsened. HISTORY OF PRESENTING ILLNESS: This is a 58-year-old female who presents to [facility] ER with complaints of an elevated blood sugar for the past 2 days. States that it has been greater than 500 since Tuesday. She has been taking her medications as prescribed. She also states that she has had some polyuria, constipation and some abdominal discomfort. When she arrived to the ER her sodium was 130, her BUN was 41, creatinine 2.5, and it appears her baseline creatinine is normal. Her blood sugar was 498. Hemoglobin A1c is 14.9, amylase of 210, lipase 185 and so she was admitted for further evaluation and treatment. PAST MEDICAL HISTORY: Diabetes type 2, hypertension, pancreatitis, hypothyroidism, rheumatoid arthritis, migraines and chronic pain. PAST SURGICAL HISTORY: Of a hysterectomy, orthopedic toe surgery and a back and neck surgery. FAMILY HISTORY: Reviewed and noncontributory. SOCIAL HISTORY: She currently lives with family. Denies any tobacco, alcohol or illicit drug use. ALLERGIES: She has no known drug allergies. HOME MEDICATIONS: Current list will need to be obtained, reconciled, reviewed and restarted as appropriate. Will place an order for nursing to update and confirm home medications. LABORATORY DATA: Showed a white blood cell count of 7.73, hemoglobin 11.1, hematocrit 32.9, platelets 317,000. Sodium 130, potassium 5.1, chloride 91, CO2 25, BUN of 41, creatinine 2.5, glucose 498. Hemoglobin A1c was 14.9. Amylase of 210, lipase 185. REVIEW OF SYSTEMS: She denied any fever, chills, blurred vision, dizziness, chest pain, coughing, shortness of breath, she was positive for some abdominal pain, constipation, polyuria. PHYSICAL EXAMINATION: On arrival showed a temperature of 97.2 degrees, pulse 103, respirations 18, blood pressure 103/68, saturating 98% on room air. GENERAL: This is a 58-year-old female who is lying in the bed, answers questions appropriately. HEENT: Normocephalic, atraumatic. Normal ENT inspection. Oropharynx clear. Pupils are equal, round, reactive to light, accommodation, extraocular movements intact. NECK: Normal inspection, normal range of motion. LUNGS: Clear to auscultation bilaterally with equal lung expansion and chest wall movement. HEART: With regular rate and rhythm. No murmurs, rubs, or gallops. ABDOMEN: Soft, nontender, nondistended. Bowel sounds are present x4 quadrants. MUSCULOSKELETAL: She had 5/5 strength x4 extremities. NEUROLOGICAL: Cranial nerves 2-12 are grossly intact. ASSESSMENT: 1. Uncontrolled diabetes with hyperglycemia. 2. Acute pancreatitis. 3. Acute kidney injury. 4. Hyponatremia. PLAN: She is being admitted to the medical unit, held NPO, placed on pattern blood sugars with sliding scale insulin, normal saline at 75 mL an hour. She was given 2 L of normal saline in the emergency room. We are going to start her on Lantus 10 units subcutaneous daily. We need to verify her home medications and will recheck a CBC, BMP, amylase and lipase in the a.m. Further orders after seen by attending. Dictated by ANÍBAL Mckeon for Antonio Sanchez MD cc: MD Antonio Rosales MD
[2019-03-04] MEDS: DUONEB (A & A) INH SCH ×3 (16:02→22:45)
--- NOTE | 2019-03-04 16:03 | PROVIDER DOCUMENTATION ---
This chart was entered by Alyx Lopez Scribe, acting as scribe for Baltazar Danielle MD. HPI-General Adult - General Chief Complaint: High Blood Sugar Stated Complaint: SUAGR LEVEL HIGH Time Seen by Provider: 03/04/19 12:45 Source: patient Allergies/Adverse Reactions: Patient Allergies Allergy/AdvReac Type Severity Reaction Status Date / Time No Known Allergies Allergy Verified 05/27/18 21:02 Home Medications: Home Medication List Medication Instructions Recorded Confirmed Last Taken Type Hydrocodone/APAP 7.5 mg/325 mg 1 tab PO Q6H PRN 01/05/17 05/02/17 01/15/17 History [[place]-7.5] Levothyroxine [Synthroid] 175 mcg PO DAILY 01/05/17 05/01/17 01/15/17 History Losartan/Hydrochlorothiazide 100 mg PO DAILY 01/05/17 05/01/17 1 Day Ago History [Losartan-Hctz 100-12.5 mg Tab] ~01/14/17 Carisoprodol 1 tab PO TID PRN 01/15/17 05/01/17 01/15/17 History Hydroxyzine HCl 1 tab PO TID PRN 01/15/17 05/01/17 1 Day Ago History ~01/14/17 Venlafaxine [Effexor] 100 mg PO BID 01/15/17 05/01/17 1 Day Ago History ~01/14/17 Omeprazole [Prilosec] 40 mg PO BID@0700,2100 #60 capsule 01/17/17 05/01/17 Unknown Rx Sucralfate [Carafate] 1 gm PO 4XDAY #120 tablet 01/17/17 05/01/17 Unknown Rx Amlodipine [Norvasc] 1 tab PO DAILY 05/01/17 05/01/17 Unknown History Aspirin 1 tab PO DAILY 05/01/17 05/01/17 Unknown History Benzonatate [Tessalon Perle] 1 tab PO PRN PRN 05/01/17 05/01/17 Unknown History Ferrous Sulfate [Albafort] 1 tab PO BID 05/01/17 05/01/17 Unknown History Fluticasone 50 Mcg Nasal [place] 1 spray IH DAILY 05/01/17 05/01/17 Unknown History [Flonase] Insulin Glargine,Hum.rec.anlog 30 units SQ DAILY 05/01/17 05/01/17 05/01/17 13:30 History [Toulucio Solostar] Loratadine [Claritin] 1 tab PO DIRECTED 05/01/17 05/01/17 Unknown History Metoprolol [Lopressor] 1 tab PO DAILY 05/01/17 05/01/17 Unknown History Ondansetron [Zofran] 1 tab PO Q4H PRN 05/01/17 05/01/17 Unknown History Pyridoxine HCl [Vitamin B-6] 1 tab PO DAILY 05/01/17 05/01/17 Unknown History Simethicone [Mytab Gas] 1 tab PO DIRECTED 05/01/17 05/01/17 Unknown History Sitagliptin Phos/Metformin HCl 1 tab PO BID 05/01/17 05/01/17 05/01/17 13:30 History [Janumet 50-1,000 mg Tablet] Linaclotide [Linzess] 72 mcg PO DAILY #30 capsule 05/04/17 Unknown Rx Hydrocodone/APAP 5 mg/325 mg 1 - 2 tab PO Q6H PRN PRN #18 tab 05/29/17 Unknown Rx [[place]-5] Promethazine [Phenergan] 1 - 2 tab PO Q6H PRN PRN #18 tab 05/29/17 Unknown Rx Hydrocodone/APAP 5 mg/325 mg 1 tab PO Q6H PRN PRN #12 tab 12/17/17 Unknown Rx [[place]-5] Ondansetron HCl [Zofran] 1 tab PO Q6H PRN PRN #12 tab 12/17/17 Unknown Rx Meclizine HCl [Antivert] 25 mg PO BID #20 tab 05/27/18 Unknown Rx - History of Present Illness -Gen Adult Nature of Presenting Problems: 58 y/o female presents to ED with hyperglycemia onset 2 days ago. Pt reports her FSBS has been greater than 500 since Tuesday. Pt states she is on novolog and glimepiride. Pt also complains of polyuria, constipation, and abdominal pain. Pt is alert and oriented. Location of Pain/Injury: reports: abdomen Pain Radiation: reports: no radiation Quality of Pain: reports: aching Severity: reports: mild Onset/Duration: reports: 2 days ago Timing: reports: still present Context/Activities at Onset: reports: none Modifying Factors: improves with: nothing Associated Symptoms: reports: constipation, other (hyperglycemia; polyuria; abdominal pain) Similar Symptoms Previously?: No Recently seen or treated by another doctor?: No - Diabetes Related Context Context: reports: high blood sugar Review of Systems - Adult - REVIEW OF SYSTEMS - ADULT Constitutional: reports: other (hyperglycemia). denies: chills, fever Eyes: reports: no symptoms reported Ears, Nose, Mouth & Throat: reports: no symptoms reported Cardiovascular: denies: chest pain, palpitations Respiratory: denies: cough, shortness of breath Gastrointestinal: reports: abdominal pain, constipation. denies: diarrhea, nausea, vomiting Genitourinary: reports: no symptoms reported Musculoskeletal: denies: back pain, joint pain Integumentary: reports: no symptoms reported Neurological: denies: dizziness/vertigo, seizure Psychiatric: reports: no symptoms reported Endocrine: reports: polyuria, other (hyperglycemia) Hematologic/Lymphatic: reports: no symptoms reported Allergic/Immunologic: reports: no symptoms reported All Other Systems: Reviewed and Negative Past History - Adult - PAST MEDICAL HISTORY-ADULT Review of Records: reports: Old Records Reviewed, Nursing Assessment Review, Medications Reviewed Major Childhood Illnesses: reports: denies history Cardiovascular: reports: HTN Respiratory: reports: denies history Gastrointestinal: reports: pancreatitis Obstetrical/Gynecological: reports: denies history Genitourinary: reports: kidney disease Musculoskeletal: reports: orthopedic injury Neurological: reports: denies history Psychiatric: reports: denies history Endocrine/Immune: reports: Diabetes, thyroid disorder Other Conditions: reports: other (RA, migraines, chronic pain) - PRIOR SURGERIES/PROCEDURES Surgical/Procedure History: reports: hysterectomy, orthopedic (extremity) (toe), back/neck - IMMUNIZATION STATUS Childhood Immunizations: See Nurse Assessment Flu Vaccine: See Nurse Assessment - FAMILY HISTORY Family History: reviewed, not pertinent - SOCIAL HISTORY Smoking: non-smoker Substance Use: none/never Alcohol Use Frequency: never Living Situation: family Physical Exam-General - PHYSICAL EXAM-ADULT Initial Vital Signs Reviewed: Yes - CONSTITUTIONAL General Appearance: appears well, alert, no apparent distress - EYES Eyes: PERRL/EOMI, pink conjunctivae - HEAD, EARS, NOSE, MOUTH & THROAT HENMT: normocephalic/atraumatic, moist mucous membranes, normal ENT inspection - NECK Neck: non-tender, full range of motion - RESPIRATORY Respiratory: chest non-tender, lungs clear, normal breath sounds - CARDIOVASCULAR Cardiovascular: normal peripheral pulses, regular rate, rhythm - GASTROINTESTINAL (ABDOMEN) Abdominal Exam: normal bowel sounds, non tender, soft - MUSCULOSKELETAL Back Exam: normal inspection, no CVA tenderness, no vertebral tenderness Extremity: normal range of motion, non-tender, normal gait - SKIN Integumentary: normal color, warm/dry - NEUROLOGIC Neurologic: grossly normal - PSYCHIATRIC Psych/Mental Status: normal mood/affect, normal thought content, normal thought process, oriented x 3 Progress - PLAN OF CARE/RESULTS Progress/Plan/Lab Results: Vital Signs - 8 hr 03/04/19 12:26 Temperature 97.2 F L Pulse Rate 103 H Respiratory Rate 18 Blood Pressure 103/68 O2 Sat by Pulse Oximetry 98 Laboratory Results - last 24 hr 03/04/19 03/04/19 12:45 12:48 WBC 7.73 RBC 3.97 L Hgb 11.1 L Hct 32.9 L MCV 82.9 MCH 28.0 MCHC 33.7 RDW Std Deviation 13.6 Plt Count 317 MPV 9.7 Immature Gran % (Auto) 0.1 Neut % (Auto) 49.0 Lymph % (Auto) 40.0 [place] % (Auto) 8.2 Eos % (Auto) 2.1 Baso % (Auto) 0.6 Immature Gran # (Auto) 0.01 Neut # (Auto) 3.79 Lymph # (Auto) 3.09 [place] # (Auto) 0.63 H Eos # (Auto) 0.16 Baso # (Auto) 0.05 POC Glucose 444 H D Orders Category Date Time Status Finger Stick Blood Sugar (ED) DIRECTED Care 03/04/19 12:30 Active Saline Loc DIRECTED Care 03/04/19 12:48 Active NPO Diet 03/04/19 12:48 Active ACETONE SERUM [CHEM] Stat Lab 03/04/19 13:07 Ordered AMYLASE [CHEM] Stat Lab 03/04/19 12:48 Received CBC WITH ELECTRONIC DIFF [HEME] Stat Lab 03/04/19 12:48 Completed COMPREHENSIVE METABOLIC PANEL [CHEM] Stat Lab 03/04/19 12:48 Received LIPASE [CHEM] Stat Lab 03/04/19 12:[address] W/POSS RFLX CULT [URINALYSIS] Stat Lab 03/04/19 12:48 Ordered Hypo/Hyperglycemia Complaint Stat Oth 03/04/19 12:30 Ordered Laboratory Tests 03/04/19 03/04/19 03/04/19 12:45 12:48 12:48 WBC 7.73 RBC 3.97 L Hgb 11.1 L Hct 32.9 L MCV 82.9 MCH 28.0 MCHC 33.7 RDW Std Deviation 13.6 Plt Count 317 MPV 9.7 Immature Gran % (Auto) 0.1 Neut % (Auto) 49.0 Lymph % (Auto) 40.0 [place] % (Auto) 8.2 Eos % (Auto) 2.1 Baso % (Auto) 0.6 Immature Gran # (Auto) 0.01 Neut # (Auto) 3.79 Lymph # (Auto) 3.09 [place] # (Auto) 0.63 H Eos # (Auto) 0.16 Baso # (Auto) 0.05 Sodium Potassium Chloride Carbon Dioxide Anion Gap BUN Creatinine Estimated GFR/1.73 m2 BUN/Creatinine Ratio Glucose POC Glucose 444 H D Calculated Osmolality Calcium Total Bilirubin AST ALT Alkaline Phosphatase Total Protein Albumin Globulin Albumin/Globulin Ratio Amylase 210 H Lipase Acetone Level 03/04/19 03/04/19 03/04/19 12:48 12:48 14:12 WBC RBC Hgb Hct MCV MCH MCHC RDW Std Deviation Plt Count MPV Immature Gran % (Auto) Neut % (Auto) Lymph % (Auto) [place] % (Auto) Eos % (Auto) Baso % (Auto) Immature Gran # (Auto) Neut # (Auto) Lymph # (Auto) [place] # (Auto) Eos # (Auto) Baso # (Auto) Sodium 130 L Potassium 5.1 Chloride 91 L Carbon Dioxide 25 Anion Gap 14 BUN 41 H Creatinine 2.5 H Estimated GFR/1.73 m2 20 BUN/Creatinine Ratio 16 Glucose 498 H* POC Glucose 296 H Calculated Osmolality 293 Calcium 9.7 Total Bilirubin 0.30 AST 20 ALT 20 Alkaline Phosphatase 164 H Total Protein 8.1 Albumin 4.7 Globulin 3.0 Albumin/Globulin Ratio 1.0 Amylase Lipase 185 H Acetone Level NEGATIVE Result Diagrams: 03/04/19 12:48 03/04/19 12:48 - CONSULTS/PCP/HOSPITALIST Notification #1 *Consult/PCP/Hospitalist*: Dr. Daniel Time Discussed: 13:45 Reason/Comments: Poorly controlled type 2 diabetes; HTN Consult Disposition: Admit Departure - Departure Date of Disposition Decision: 03/04/19 Time of Disposition Decision: 14:34 DIAGNOSIS: Poorly controlled diabetes mellitus Type 2 diabetes mellitus Qualifiers: Diabetes mellitus half-way insulin use: unspecified half-way insulin use status Diabetes mellitus complication status: with other specified complication Qualified Code(s): E11.69 - Type 2 diabetes mellitus with other specified complication HTN (hypertension) Qualifiers: Hypertension type: unspecified Qualified Code(s): I10 - Essential (primary) hypertension Disposition: ADMITTED INPATIENT 09 Certified Medical Emergency: Emergent Condition: Stable - Critical Care Note This patient required my direct & personal management of CC.: No Attestation - Physician/ NICKY Attestation Patient care was provided by Advanced Practice Provider:: No The physician spent face to face time with patient:: Yes Advanced Practice Provider documentation review:: Supervising physician onsite and consulted in the evaluation and care of this patient. The physician did have a face to face encounter with the patient. This chart was documented by the indicated scribe, (Alyx oLpez Scribe) and accurately reflects the services I performed and decisions made by me, Baltazar Danielle MD, as attested by the provider's signature.
[2019-03-04] MEDS: NS 1,000 ML IV SCH (16:17)
--- NOTE | 2019-03-04 16:50 | HISTORY AND PHYSICAL ---
ADDENDUM: Patient seen and examined by myself. Full note dictated and discussed with nurse practitioner. The patient presented to the hospital with elevated blood sugars to 500. She does not have DKA. Acetone is negative. We are going to admit her to the hospital, place her on Lantus, IV fluids, sliding scale. We will have nutrition discussed her dietary changes and will follow. Please see full note. cc: Antonio Sanchez MD
[2019-03-04] MEDS: HUMALOG (PARKWAY) SUBQ SCH ×2 (17:19→21:02)
[2019-03-04 18:29] LABS: BILIRUBIN URINE NEGATIVE (NEGATIVE); BLOOD URINE NEGATIVE (NEGATIVE); KETONE URINE NEGATIVE (NEGATIVE); LEUKOCYTES URINE TRACE (NEGATIVE); NITRITE URINE NEGATIVE (NEGATIVE); PH URINE 6.5; PROTEIN URINE NEGATIVE (NEGATIVE); UROBILINOGEN URINE NORMAL
[2019-03-04 18:30] LABS: CLARITY CLEAR (CLEAR); COLOR YELLOW
[2019-03-04 18:34] LABS: URINE BACTERIA 1+ /HFP; URINE EPITHELIAL CELLS >10 /HPF (<10)
[2019-03-04 18:35] LABS: URINE CAST NONE SEEN /LPF; URINE CRYSTAL NONE SEEN /HPF; URINE SOURCE CLEAN CATCH; URINE WBC <10 /HPF (<10); URINE YEAST NONE SEEN /HPF
[2019-03-05] MEDS: DUONEB (A & A) INH SCH ×2 (02:33→08:02)
[2019-03-05] MEDS: NS 1,000 ML IV SCH (05:26)
[2019-03-05 06:43] LABS: AMYLASE 160 U/L (20-200); LIPASE 99 U/L (13-60)
[2019-03-05] MEDS: HUMALOG (PARKWAY) SUBQ SCH (06:44)
[2019-03-05 06:47] LABS: CALCIUM 8.5 mg/dL (8.8-10.2); CREATININE 1.3 mg/dL (0.5-0.9); POTASSIUM 5.7 mmol/L (3.5-5.1)
[2019-03-05 07:07] LABS: BASO# 0.03 X1000 (0.0-0.2)
[2019-03-05 07:08] LABS: BASO% 0.6 % (0.0-0.8); EOS# 0.17 X1000 (0.0-0.7); EOS% 3.3 % (0.0-10.0); HEMATOCRIT 26.7 % (37.0-47.0); HEMOGLOBIN 8.5 g/dL (12.0-16.0); IMM GRAN# 0.01 X1000 (0.0-0.04); IMM GRAN% 0.2 % (0.0-0.5); LYMPH# 2.31 X1000 (1.2-3.4); LYMPH% 45.4 % (20.5-51.1); MCH 27.3 PG (27-31); MCHC 31.8 g/dL (33-37); MCV 85.9 FL (81-99); MONO# 0.34 X1000 (0.11-0.59); MONO% 6.7 % (1.7-9.3); NEUT# 2.23 X1000 (1.4-6.5); NEUT% 43.8 % (42.2-75.2); PLT 261 X1000 (130-400); RBC 3.11 XMIL (4.2-5.4); RDW 13.7 % (11.5-14.5); WBC 5.09 X1000 (4.8-10.8)
[2019-03-05 08:00] VITALS: BP 127/79
--- NOTE | 2019-03-06 06:29 | DISCHARGE SUMMARY ---
ADMISSION DATE: 03/04/2019 DISCHARGE DATE: 03/05/2019 DISCHARGE DIAGNOSES: 1. Diabetes with poor home control with an A1c of 14 much improved on 10 units of Lantus. 2. Hypertension. 3. Hypothyroidism. 4. Rheumatoid arthritis. 5. Chronic pain. CONSULTATIONS: None. PROCEDURES: None. BRIEF HOSPITAL COURSE: The patient is a 58-year-old female who presented to the hospital, and treated in the usual fashion. She was placed on Lantus 10 units, which she tolerated very well. On discharge, her blood sugars are in the mid 150s and below. She tolerated Lantus well. She had an uneventful hospital course. Notes that her blurred vision that she had on admission is actually improving. Fatigue is also improving. Denies any other symptoms currently. DISPOSITION: Patient will be discharged home. She will continue her home medications with the addition of Lantus 10 units daily. She will follow up outpatient with treatment facility of her choice. Hopefully, she sees Dr. Cade. Discussed with patient diabetic diet. TIME SPENT: 30 minutes spent in total care. cc: Antonio Sanchez MD
== END 2019-03-05 09:47 | disposition home or self-care (01) | DRG 637 ==
LOC: P.ED 12:24 → P.MEDSURG 14:29
PROVIDERS: ATTEND Family Medicine

== ENCOUNTER 2019-05-12 09:36 | Inpatient (IN) ==
[2019-05-12] MEDS ORDERED: NS 1,000 ML ONE (09:41)
[2019-05-12] MEDS ORDERED: NS 1,000 ML IV ONE (09:43)
[2019-05-12] MEDS ORDERED: HUMALOG IV ONE (10:02)
[2019-05-12] MEDS ORDERED: HUMALOG (PARKWAY) ONE (10:06)
[2019-05-12 10:10] LABS: HEMATOCRIT 35.6 % (37.0-47.0); HEMOGLOBIN 11.3 g/dL (12.0-16.0); MCH 27.8 PG (27-31); MCHC 31.7 g/dL (33-37); MCV 87.5 FL (81-99); MPV 9.9 FL (7.4-10.4); RBC 4.07 XMIL (4.2-5.4); WBC 7.18 X1000 (4.8-10.8)
[2019-05-12 10:24] LABS: HEMOGLOBIN A1C 13.4 % (4.8-6.0)
[2019-05-12 10:25] LABS: ACETONE SERUM NEGATIVE (NEGATIVE)
[2019-05-12 10:26] LABS: AGAP 13; ALBUMIN 4.4 g/dL (3.5-5.0); ALKALINE PHOSPHATASE 166 U/L (32-104); BUN 30 mg/dL (8-22); CALCIUM 10.1 mg/dL (8.8-10.2); CHLORIDE 100 mmol/L (98-107); CK PROFILE 54 U/L (24-173); COSMO 297; CREATININE 1.6 mg/dL (0.5-0.9); ESTIMATED GFR 33; GOT 22 U/L (10-30); GPT 29 U/L (10-36); MAGNESIUM 1.9 mg/dL (1.5-2.7); PHOSPHORUS 4.4 mg/dL (2.7-4.5); SODIUM 133 mmol/L (136-145); TCO2 21 mmol/L (25-35); TOTAL PROTEIN 7.7 g/dL (6.3-8.3)
[2019-05-12 10:30] LABS: GLUCOSE 541 mg/dL (70-104)
--- NOTE | 2019-05-12 10:57 | PROVIDER DOCUMENTATION ---
This chart was entered by Alyx Lopez Scribe, acting as scribe for Baltazar Danielle MD. HPI-General Adult - General Chief Complaint: High Blood Sugar Stated Complaint: HIGH BLOOD SUGAR Time Seen by Provider: 05/12/19 09:45 Source: patient, EMS Allergies/Adverse Reactions: Patient Allergies Allergy/AdvReac Type Severity Reaction Status Date / Time No Known Allergies Allergy Verified 05/12/19 10:03 Home Medications: Home Medication List Medication Instructions Recorded Confirmed Last Taken Type Hydrocodone/APAP 7.5 mg/325 mg 1 tab PO Q8H PRN PRN 01/05/17 03/04/19 01/15/17 History [[place]-7.5] Venlafaxine [Effexor] 100 mg PO BID 01/15/17 03/04/19 1 Day Ago History ~01/14/17 Aspirin 1 tab PO DAILY 05/01/17 03/04/19 Unknown History Fluticasone 50 Mcg Nasal [place] 1 spray IH DAILY PRN PRN 05/01/17 03/04/19 Unknown History [Flonase] Linaclotide [Linzess] 72 mcg PO DAILY #30 capsule 05/04/17 03/04/19 Unknown Rx Amitriptyline HCl 50 mg PO QHS 03/04/19 03/04/19 Unknown History Amlodipine Besylate 5 mg PO DAILY 03/04/19 03/04/19 Unknown History Atorvastatin Calcium 20 mg PO QHS 03/04/19 03/04/19 Unknown History Insulin Aspart [Novolog Flexpen] 10 units SQ AC 03/04/19 03/04/19 Unknown History Levothyroxine [Synthroid] 150 microgm PO DAILY@0600 03/04/19 03/04/19 Unknown History Losartan Potassium 100 mg PO DAILY 03/04/19 03/04/19 Unknown History Insulin Glargine [Lantus Insulin] 10 unit SUBQ DAILY #1500 unit 03/05/19 Unknown Rx - History of Present Illness -Gen Adult Nature of Presenting Problems: 58 y/o female presents to ED with hyperglycemia, weakness, chills, N/V, abdominal pain, and back pain onset last night. Pt reports hx diabetes. Pt states she takes 40 of lantus and 4 of amaryl. Pt reports she knew her sugar was high because she "just felt bad." Pt states she had a normal bowel movement today. Pt reports she has not taken her insulin today. EMS states FSBS >500 en route to ED. Pt is alert and oriented. Location of Pain/Injury: reports: abdomen, back Pain Radiation: reports: no radiation Quality of Pain: reports: aching Severity: reports: mild, moderate Onset/Duration: reports: last night Timing: reports: still present Context/Activities at Onset: reports: none Modifying Factors: improves with: nothing Associated Symptoms: reports: back/neck pain, fever/chills, nausea, vomiting, weakness, other (hyperglycemia; abdominal pain) Similar Symptoms Previously?: Yes Recently seen or treated by another doctor?: No - Diabetes Related Context Context: reports: high blood sugar Review of Systems - Adult - REVIEW OF SYSTEMS - ADULT Constitutional: reports: chills. denies: fever Eyes: reports: no symptoms reported Ears, Nose, Mouth & Throat: reports: no symptoms reported Cardiovascular: denies: chest pain, palpitations Respiratory: denies: cough, shortness of breath Gastrointestinal: reports: abdominal pain, nausea, vomiting. denies: diarrhea Genitourinary: reports: no symptoms reported Musculoskeletal: reports: back pain. denies: joint pain Integumentary: reports: no symptoms reported Neurological: reports: other (weakness). denies: dizziness/vertigo, seizure Psychiatric: reports: no symptoms reported Endocrine: reports: other (hyperglycemia). denies: goiter Hematologic/Lymphatic: reports: no symptoms reported Allergic/Immunologic: reports: no symptoms reported All Other Systems: Reviewed and Negative Past History - Adult - PAST MEDICAL HISTORY-ADULT Review of Records: reports: Old Records Reviewed, Nursing Assessment Review, Medications Reviewed Major Childhood Illnesses: reports: denies history Cardiovascular: reports: HTN, hyperlipidemia Respiratory: reports: asthma, sleep apnea Gastrointestinal: reports: pancreatitis Obstetrical/Gynecological: reports: denies history Genitourinary: reports: kidney disease Musculoskeletal: reports: orthopedic injury Neurological: reports: denies history Psychiatric: reports: denies history Endocrine/Immune: reports: Diabetes, thyroid disorder Other Conditions: reports: other (RA, migraines, chronic pain) - PRIOR SURGERIES/PROCEDURES Surgical/Procedure History: reports: hysterectomy, orthopedic (extremity) (toe), back/neck - IMMUNIZATION STATUS Childhood Immunizations: See Nurse Assessment Flu Vaccine: See Nurse Assessment - FAMILY HISTORY Family History: reviewed, not pertinent - SOCIAL HISTORY Smoking: non-smoker Substance Use: none/never Alcohol Use Frequency: never Living Situation: family Physical Exam-General - PHYSICAL EXAM-ADULT Initial Vital Signs Reviewed: Yes - CONSTITUTIONAL General Appearance: appears well, alert, no apparent distress - EYES Eyes: PERRL/EOMI, pink conjunctivae - HEAD, EARS, NOSE, MOUTH & THROAT HENMT: normocephalic/atraumatic, moist mucous membranes, normal ENT inspection - NECK Neck: non-tender, full range of motion - RESPIRATORY Respiratory: chest non-tender, lungs clear, normal breath sounds - CARDIOVASCULAR Cardiovascular: tachycardia - GASTROINTESTINAL (ABDOMEN) Abdominal Exam: normal bowel sounds, non tender, soft - MUSCULOSKELETAL Back Exam: normal inspection, no CVA tenderness, no vertebral tenderness Extremity: normal range of motion, non-tender - SKIN Integumentary: normal color, warm/dry - NEUROLOGIC Neurologic: grossly normal - PSYCHIATRIC Psych/Mental Status: normal mood/affect, normal thought content, normal thought process, oriented x 3 Progress - PLAN OF CARE/RESULTS Progress/Plan/Lab Results: Vital Signs - 8 hr 05/12/19 09:36 05/12/19 09:43 Temperature 98.4 F 98.4 F Pulse Rate 99 H 96 H Respiratory Rate 18 19 Blood Pressure 123/86 109/79 O2 Sat by Pulse Oximetry 100 100 Laboratory Results - last 24 hr 05/12/19 09:43 POC Glucose 500 H D Orders Category Date Time Status Cardiac Monitoring DIRECTED Care 05/12/19 09:43 Active FSBS/Accucheck Result Q1H Care 05/12/19 09:43 Active Saline Loc NOW Care 05/12/19 09:43 Active Vital Signs Order Q1H Care 05/12/19 09:43 Active A1C [A1C HGB W EST AVG GLUCOSE] [CHEM] Stat Lab 05/12/19 09:59 Received ACETONE SERUM [CHEM] Stat Lab 05/12/19 09:49 Ordered CBC WITH NO DIFF [HEME] Stat Lab 05/12/19 09:49 Ordered CK PROFILE [SP CHEM] Stat Lab 05/12/19 09:49 Ordered COMPREHENSIVE METABOLIC PANEL [CHEM] Stat Lab 05/12/19 09:49 Ordered LACTATE, PLASMA [CHEM] Stat Lab 05/12/19 09:49 Ordered MAGNESIUM [CHEM] Stat Lab 05/12/19 09:49 Ordered PHOSPHORUS [CHEM] Stat Lab 05/12/19 09:49 Ordered TROPONIN T Stat Lab 05/12/19 09:[address] [URINALYSIS] Stat Lab 05/12/19 09:43 Uncollected URINE DRUG SCREEN PL Stat Lab 05/12/19 09:43 Uncollected 0.9% Sodium Chloride Inj [Ns] 1,000 ml Med 05/12/19 09:41 Discontinued .ROUTE As directed 0.9% Sodium Chloride Inj [Ns] 1,000 ml Med 05/12/19 09:43 Active IV 999 mls/hr EKG [EKG] Routine Ther 05/12/19 09:43 Ordered Laboratory Tests 05/12/19 05/12/19 05/12/19 09:43 09:59 10:01 WBC RBC Hgb Hct MCV MCH MCHC RDW Std Deviation Plt Count MPV Sodium 133 L Potassium 5.0 Chloride 100 Carbon Dioxide 21 L Anion Gap 13 BUN 30 H Creatinine 1.6 H Estimated GFR/1.73 m2 33 BUN/Creatinine Ratio 19 Glucose 541 H* POC Glucose 500 H D Estimat Average Glucose 338 Hemoglobin A1c 13.4 H Calculated Osmolality 297 Calcium 10.1 Phosphorus 4.4 Magnesium 1.9 Total Bilirubin 0.40 AST 22 ALT 29 Alkaline Phosphatase 166 H Creatine Kinase 54 Troponin T Total Protein 7.7 Albumin 4.4 Globulin 3.0 Albumin/Globulin Ratio 1.0 Plasma Lactate Acetone Level NEGATIVE 05/12/19 05/12/19 05/12/19 10:01 10:01 10:01 WBC 7.18 RBC 4.07 L Hgb 11.3 L Hct 35.6 L MCV 87.5 MCH 27.8 MCHC 31.7 L RDW Std Deviation 15.0 H Plt Count 304 MPV 9.9 Sodium Potassium Chloride Carbon Dioxide Anion Gap BUN Creatinine Estimated GFR/1.73 m2 BUN/Creatinine Ratio Glucose POC Glucose Estimat Average Glucose Hemoglobin A1c Calculated Osmolality Calcium Phosphorus Magnesium Total Bilirubin AST ALT Alkaline Phosphatase Creatine Kinase Troponin T < 0.010 Total Protein Albumin Globulin Albumin/Globulin Ratio Plasma Lactate 2.7 H Acetone Level 05/12/19 05/12/19 10:18 10:40 WBC RBC Hgb Hct MCV MCH MCHC RDW Std Deviation Plt Count MPV Sodium Potassium Chloride Carbon Dioxide Anion Gap BUN Creatinine Estimated GFR/1.73 m2 BUN/Creatinine Ratio Glucose POC Glucose 494 H 500 H Estimat Average Glucose Hemoglobin A1c Calculated Osmolality Calcium Phosphorus Magnesium Total Bilirubin AST ALT Alkaline Phosphatase Creatine Kinase Troponin T Total Protein Albumin Globulin Albumin/Globulin Ratio Plasma Lactate Acetone Level Result Diagrams: 05/12/19 10:01 05/12/19 10:01 - EKG 1 Time of EKG reading by physician:: 10:16 EKG Read and Signed by:: Baltazar Danielle EKG Interpretation (*Must complete 3 of following elements*): Abnormal Rate: 101 Rhythm: Sinus tach [place]: left QRS: normal HI Interval: normal ST Wave: normal - CONSULTS/PCP/HOSPITALIST Notification #1 *Consult/PCP/Hospitalist*: Dr. Cade Time Discussed: 10:30 Reason/Comments: Hyperglycemia, type II diabetes Consult Disposition: Admit Departure - Departure Date of Disposition Decision: 05/12/19 Time of Disposition Decision: 10:55 DIAGNOSIS: Hyperglycemia, Poorly controlled diabetes mellitus Type 2 diabetes mellitus Qualifiers: Diabetes mellitus nursing home insulin use: unspecified nursing home insulin use status Diabetes mellitus complication status: with other specified complication Qualified Code(s): E11.69 - Type 2 diabetes mellitus with other specified complication Disposition: ADMITTED INPATIENT 09 Certified Medical Emergency: Emergent Condition: Stable Referrals and Follow-Ups: Jos Cade MD [Primary Care Provider] - - Critical Care Note This patient required my direct & personal management of CC.: No Attestation - Physician/ NICKY Attestation Patient care was provided by Advanced Practice Provider:: No The physician spent face to face time with patient:: Yes Advanced Practice Provider documentation review:: Supervising physician onsite and consulted in the evaluation and care of this patient. The physician did have a face to face encounter with the patient. This chart was documented by the indicated scribe, (Alyx Lopez Scriblily) and accurately reflects the services I performed and decisions made by me, Baltazar Danielle MD, as attested by the provider's signature.
[2019-05-12 11:12] LABS: URINE SOURCE CLEAN CATCH
[2019-05-12 11:17] LABS: BILIRUBIN URINE NEGATIVE (NEGATIVE); BLOOD URINE NEGATIVE (NEGATIVE); CLARITY CLEAR (CLEAR); COLOR YELLOW; KETONE URINE NEGATIVE (NEGATIVE); LEUKOCYTES URINE NEGATIVE (NEGATIVE); NITRITE URINE NEGATIVE (NEGATIVE); PH URINE 6.5; PROTEIN URINE TRACE mg/dL (NEGATIVE); SP GRAVITY URINE 1.005; URINE BACTERIA NEGATIVE /HFP; URINE CAST NONE SEEN /LPF; URINE CRYSTAL NONE SEEN /HPF; URINE EPITHELIAL CELLS <10 /HPF (<10); URINE RBC <10 /HPF (<10); URINE WBC <10 /HPF (<10); URINE YEAST NONE SEEN /HPF; UROBILINOGEN URINE NORMAL
--- NOTE | 2019-05-12 11:38 | EKG Report ---
Test Performed on : 05/12/2019 10:16:57 AM Test Reason : elevated bs Blood Pressure : / mmHG Vent. Rate : 101 BPM Atrial Rate : 101 BPM P-R Int : 192 ms QRS Dur : 080 ms QT Int : 384 ms P-R-T Axes : 024 -37 026 degrees QTc Int : 497 ms Sinus tachycardia. Left axis deviation Abnormal ECG When compared with ECG of 31-MAY-2018 12:49, No significant change was found Unconfirmed Result
[2019-05-12 11:47] LABS: UR AMPHETAMINES QUAL NONE DETECTED (NONE DETECT); UR BARBITUATES QUAL NONE DETECTED (NONE DETECT); UR BENZODIAZEPIN QUAL NONE DETECTED (NONE DETECT); UR CANNABINOIDS QUAL NONE DETECTED (NONE DETECT); UR COCAINE QUAL NONE DETECTED (NONE DETECT); UR METHADONE QUAL NONE DETECTED (NONE DETECT); UR METHAMPHETAMINE QUAL NONE DETECTED (NONE DETECT); UR OPIATES QUAL PRESUMPTIVE POSITIVE (NONE DETECT); UR OXYCODONE QUAL NONE DETECTED (NONE DETECT); UR PCP QUAL NONE DETECTED (NONE DETECT); UR PROPOXYPHENE QUAL NONE DETECTED (NONE DETECT); UR TCA QUAL PRESUMPTIVE POSITIVE (NONE DETECT)
[2019-05-12] MEDS ORDERED: ZOFRAN IV PRN (12:23)
[2019-05-12] MEDS: NS 1,000 ML IV SCH ×2 (12:45→22:37)
[2019-05-12] MEDS: MORPHINE IV PRN ×3 (13:19→22:37)
[2019-05-12 14:19] LABS: BE -3.5 mmoll (-3.0-3.0); BLOOD TYPE ARTERIAL; HCO3-(ACT) 22.2 mmoll (20.0-26.0); METHB 1.1 % (0.0-1.5); O2(CT) 14.5 mL/dL (15.0-23.0); PCO2(98.6) 37 mmHg (35-45); PO2(98.6) 73 mmHg (60-100); SAMPLE BLOOD; THB 10.8 g/dL (11.5-17.4); pH(98.6) 7.37 (7.35-7.45)
[2019-05-12 14:22] LABS: MODALITY ROOM AIR
[2019-05-12 14:23] LABS: ALLEN TEST YES
[2019-05-12] MEDS: HUMALOG (PARKWAY) SUBQ SCH ×3 (16:02→22:37)
--- NOTE | 2019-05-12 18:16 | HISTORY AND PHYSICAL ---
CHIEF COMPLAINT: Elevated blood glucose levels. HISTORY OF PRESENT ILLNESS: Ms. Romero is a 58-year-old female who has a history of type 2 diabetes mellitus that has been poorly controlled and has history of repeated hospital admissions because of poor medical compliance. She states that she was having elevated blood glucose levels and was not feeling good. She states that she was having dizziness last night, and this morning she just wanted to come into the emergency department since her glucose levels were greater than 500. She stated that she was having frequent urination and was feeling very thirsty. PAST MEDICAL HISTORY: 1. Type 2 diabetes mellitus. 2. Hypertension. 3. Hypothyroidism. 4. Dyslipidemia. 5. Depression. 6. Anxiety disorder. 7. Osteoarthritis. 8. Migraine headaches. PAST SURGICAL HISTORY: 1. Hysterectomy. 2. Back and neck surgery. FAMILY HISTORY: 1. Noncontributory. SOCIAL HISTORY: The patient denies tobacco use or any illicit drug use. She does not drink alcohol on a regular basis. She lives with her family. ALLERGIES: No known drug allergies reported. MEDICATIONS: [place] 7.5 mg twice daily as needed for pain, Lantus insulin 40 units subcutaneously every 24 hours, lispro insulin 10 units 3 times a day prior to meals, amitriptyline 25 mg orally once daily at bedtime, amlodipine 5 mg orally once daily, aspirin 81 mg orally once daily, atorvastatin 20 mg orally once daily at bedtime, levothyroxine 150 mcg orally once daily, Linzess 72 mcg orally once daily, losartan 100 mg orally once daily, venlafaxine 37.5 mg orally twice daily. REVIEW OF SYSTEMS: A full 14-point review of systems was obtained that was pretty much the same as already has been explained in the HPI. PHYSICAL EXAMINATION: VITAL SIGNS: Temperature 97.8 degrees, pulse 92 per minute, respiratory rate 16 per minute, blood pressure 111/76, pulse ox 100% on room air. GENERAL: Patient is alert and oriented x3. She does not appear to be in any acute distress. HEENT: Within normal limits. NECK: Supple without any thyromegaly. LYMPHATICS: No lymphadenopathy noted in the neck region. CHEST: Chest wall is nontender. CARDIOVASCULAR SYSTEM: First and second heart sounds are audible without murmurs or gallops. RESPIRATORY SYSTEM: Bilateral lung air entry is good without any rales or rhonchi. GASTROINTESTINAL SYSTEM: Abdomen is soft and nondistended. It is nontender on palpation, and normal bowel sounds are present. NEUROLOGIC: No focal deficits are present. PSYCHIATRIC: Normal affect noted. MUSCULOSKELETAL SYSTEM: No deformities are present. GENITOURINARY: Deferred. INTEGUMENTARY: Skin is warm, dry, and without any rash. DIAGNOSTIC DATA: CBC showed WBC count of 7.18, hemoglobin 11.3, hematocrit 35.6, and platelet count of 304. Comprehensive metabolic panel showed sodium level of 133, BUN 30, creatinine 1.6 and glucose level of 541. The rest of the comprehensive metabolic panel was nondiagnostic. Cardiac enzymes were found to be negative, and plasma lactate level was found to be 2.7. Arterial blood gases obtained this afternoon showed pH of 7.37, pCO2 of 37, and PO2 of 73 on room air. IMPRESSION: 1. Uncontrolled type 2 diabetes mellitus secondary to poor medical compliance. 2. Acute kidney injury secondary to dehydration. 3. Multiple comorbid conditions including hypertension, dyslipidemia, and hypothyroidism. PLAN: The patient will be admitted to the regular medical/surgical floor here at the [facility]. We are going to give her IV fluids and give her lispro insulin subcutaneously as per sliding scale. We will continue all of her current home medications and repeat labs in the morning to see her progress. I believe she is already feeling better and can possibly be discharged home within 1 to 2 days if continues to feel better. cc: Jos Cade MD
[2019-05-12] MEDS: ELAVIL PO SCH (22:36)
[2019-05-12] MEDS: LIPITOR PO SCH (22:37)
[2019-05-12] MEDS: EFFEXOR PO SCH (22:37)
[2019-05-13] MEDS: LINZESS PO SCH (06:06)
[2019-05-13] MEDS: SYNTHROID PO SCH (06:06)
[2019-05-13] MEDS: NS 1,000 ML IV SCH ×2 (06:07→16:28)
[2019-05-13] MEDS: MORPHINE IV PRN ×4 (06:35→22:04)
[2019-05-13] MEDS: HUMALOG (PARKWAY) SUBQ SCH ×4 (06:49→22:04)
[2019-05-13 07:44] LABS: BASO# 0.03 X1000 (0.0-0.2); BASO% 0.4 % (0.0-0.8); EOS# 0.11 X1000 (0.0-0.7); EOS% 1.6 % (0.0-10.0); HEMATOCRIT 30.2 % (37.0-47.0); HEMOGLOBIN 9.5 g/dL (12.0-16.0); LYMPH# 1.85 X1000 (1.2-3.4); LYMPH% 27.1 % (20.5-51.1); MCH 28.1 PG (27-31); MCHC 31.5 g/dL (33-37); MCV 89.3 FL (81-99); MONO# 0.54 X1000 (0.11-0.59); MONO% 7.9 % (1.7-9.3); MPV 9.2 FL (7.4-10.4); NEUT# 4.29 X1000 (1.4-6.5); PLT 257 X1000 (130-400); RBC 3.38 XMIL (4.2-5.4); RDW 15.1 % (11.5-14.5); WBC 6.82 X1000 (4.8-10.8)
[2019-05-13 09:16] LABS: AGAP 12; ALBUMIN 3.8 g/dL (3.5-5.0); ALKALINE PHOSPHATASE 123 U/L (32-104); BUN 21 mg/dL (8-22); CHLORIDE 103 mmol/L (98-107); COSMO 288; CREATININE 1.3 mg/dL (0.5-0.9); GOT 20 U/L (10-30); GPT 23 U/L (10-36); POTASSIUM 4.7 mmol/L (3.5-5.1); SODIUM 134 mmol/L (136-145); TCO2 20 mmol/L (25-35); TOTAL PROTEIN 6.9 g/dL (6.3-8.3)
[2019-05-13 09:19] LABS: GLUCOSE 405 mg/dL (70-104)
[2019-05-13] MEDS: COZAAR PO SCH (09:52)
[2019-05-13] MEDS: ASPIRIN PO SCH (09:52)
[2019-05-13] MEDS: EFFEXOR PO SCH ×2 (09:52→20:51)
[2019-05-13] MEDS: NORVASC PO SCH (09:52)
[2019-05-13] MEDS: LANTUS INSULIN SUBQ SCH (10:55)
[2019-05-13 11:27] LABS: CHOLESTEROL 142 mg/dL (0-200); HDL 40 mg/dL (45-65); LDL 62 mg/dL; TRIGLYCERIDES 199 mg/dL (35-135); VLDL 40 mg/dL
--- NOTE | 2019-05-13 15:16 | PROGRESS NOTE ---
DATE: 05/13/2019 SUBJECTIVE: Patient reports feeling fine. Denies any nausea and vomiting. No fever or chills. OBJECTIVE: Vital Signs: Temperature 97.9 degrees, heart rate 96, respiratory 21, blood pressure 124/83, O2 saturation 95% on room air. GENERAL EXAMINATION: This is a 58-year-old female lying in bed, in no acute distress.Cardiovascular: S1, S2 heard. No murmurs, gallops, or rubs. Regular rate and rhythm. Respiratory: Clear bilaterally to auscultation. No work of breathing or using accessory muscles. Abdomen: Soft, nontender to palpation. Bowel sounds present. No organomegaly. Extremities: No clubbing, cyanosis, or edema. Peripheral pulses present in both legs. Neurological: Patient is alert and oriented x3. Moves 4 extremities. LABORATORY DATA: White cell count 6.82, hemoglobin 9.5, hematocrit 30.2, platelets 257,000. Glucose 405, A1c 13.4. ASSESSMENT AND PLAN: 1. Uncontrolled diabetes mellitus type 2 secondary to poor medical compliance. Patient has been started today on Lantus. She uses 40 units subcutaneous daily. We are going to add 15 units at night considering her very elevated hemoglobin A1c. We will continue to check Accu-Chek before meals and also at bedtime and sliding scale insulin as needed. 2. Acute kidney injury secondary to dehydration. The renal function continues to improve. It is 1.3 today. We will continue to monitor. 3. Hypertension. Blood pressure is under control. We will continue with the same management. 4. Dyslipidemia. We have checked a lipid panel and it is fairly okay with triglycerides of 199 and the rest of exam is normal. We will continue with the same management. 5. disposition. We will continue to monitor this patient 1 more day here. If blood sugars are better tomorrow, we will let her go. cc: Clifford Peterson MD
[2019-05-13] MEDS: LIPITOR PO SCH (20:51)
[2019-05-13] MEDS: ELAVIL PO SCH (20:51)
[2019-05-13] MEDS ORDERED: MYLICON PO PRN (20:54)
[2019-05-13] MEDS ORDERED: LANTUS INSULIN SUBQ SCH (21:00)
[2019-05-14] MEDS: MORPHINE IV PRN ×2 (03:01→07:37)
[2019-05-14] MEDS: SYNTHROID PO SCH (06:22)
[2019-05-14] MEDS: LINZESS PO SCH (06:22)
[2019-05-14] MEDS: HUMALOG (PARKWAY) SUBQ SCH ×2 (06:23→11:34)
[2019-05-14 06:30] LABS: BASO# 0.03 X1000 (0.0-0.2); BASO% 0.4 % (0.0-0.8); EOS# 0.19 X1000 (0.0-0.7); EOS% 2.7 % (0.0-10.0); HEMATOCRIT 28.6 % (37.0-47.0); HEMOGLOBIN 8.9 g/dL (12.0-16.0); IMM GRAN# 0.02 X1000 (0.0-0.04); IMM GRAN% 0.3 % (0.0-0.5); LYMPH# 3.03 X1000 (1.2-3.4); LYMPH% 42.9 % (20.5-51.1); MCHC 31.1 g/dL (33-37); MCV 89.9 FL (81-99); MONO# 0.72 X1000 (0.11-0.59); MONO% 10.2 % (1.7-9.3); MPV 9.4 FL (7.4-10.4); NEUT# 3.07 X1000 (1.4-6.5); NEUT% 43.5 % (42.2-75.2); PLT 258 X1000 (130-400); RBC 3.18 XMIL (4.2-5.4); RDW 15.2 % (11.5-14.5); WBC 7.06 X1000 (4.8-10.8)
[2019-05-14 06:51] LABS: CALCIUM 9.3 mg/dL (8.8-10.2); POTASSIUM 4.4 mmol/L (3.5-5.1)
[2019-05-14 07:59] VITALS: BP 118/81
[2019-05-14] MEDS: NS 1,000 ML IV SCH (10:07)
[2019-05-14] MEDS: EFFEXOR PO SCH (10:09)
[2019-05-14] MEDS: NORVASC PO SCH (10:09)
[2019-05-14] MEDS: ASPIRIN PO SCH (10:09)
[2019-05-14] MEDS: COZAAR PO SCH (10:09)
[2019-05-14] MEDS: LANTUS INSULIN SUBQ SCH (10:10)
--- NOTE | 2019-05-15 07:26 | DISCHARGE SUMMARY ---
ADMISSION DATE: 05/12/2019 DISCHARGE DATE: 05/14/2019 PRIMARY CARE PROVIDER: Dr. Cade. STUDIES AND PROCEDURES: EKG sinus tachycardia. DISCHARGE DIAGNOSES: 1. Uncontrolled type 2 diabetes mellitus secondary to poor medical compliance. The patient's hemoglobin A1c was 13.4. Initial blood glucose was in the 500s. After being admitted, started on her home regimen and placed on Lantus at night sugars came down to 98. We will discharge her back home on her home Lantus as well as oral medication. However, continue to follow a diabetic diet and follow up with Dr. Cade in the office this week. 2. Acute kidney injury secondary to dehydration, completely resolved. 3. Hypertension, stable. 4. Dyslipidemia. Continue statin. 5. Hypothyroidism. Continue Synthroid. HOSPITAL COURSE: Briefly, Ms. Romero is a 58-year-old female with a history of type 2 diabetes with documented noncompliance and poorly controlled for repeated hospital admissions of medical noncompliance. She reported elevated blood glucose levels, not feeling well as well as having some dizziness. She came to the ED to be evaluated and was found to be dehydrated and hyperglycemic without any DKA. She was admitted to the hospital aggressively IV hydrated, placed on sliding scale, added Lantus at night; however with diabetic diet and adding medications the patient's blood glucose levels dropped into the 90s. We will continue with her home regimen, continue diabetic diet and follow up with her primary care provider, Dr. Cade. PHYSICAL EXAMINATION: Vital Signs: Temperature is 97.9 degrees, heart rate 102, respirations 20, blood pressure 118/81. O2 is 98% on room air. General: Ms. Romero is a 58-year-old - [place] female who is sitting up in the bed in no acute distress. HEENT: Atraumatic, normocephalic. PERRL. Neck: Supple trachea midline. Cardiovascular: S1, S2 appreciated. No murmurs, gallops, rubs noted. Respiratory: Lung sounds clear bilaterally. GI: Was soft, nontender, nondistended. Positive bowel sounds 4 quads. Extremities: Negative for edema. Neurologic: No focal deficits noted. FOLLOWUP: Ms. Romero is being discharged back home with self-care on her home diabetic regimen, diabetic diet, and follow up with Dr. Cade within the week. She can return to the ED or call 911 for any worsening of symptoms. She is to continue all her regular scheduled home medications. Dictated by ANÍBAL Julian for Clifford Peterson MD Addendum: Patient seen and examined by myself. Agree with ANÍBAL note. It reflects my assessment and plan. Patient is being discharged in stable condition. Will be seen by PCP within a week. cc: Clifford Peterson MD [facility]
== END 2019-05-14 12:21 | disposition home or self-care (01) | DRG 638 ==
LOC: SUPCPDRO → P.ED 09:36 → SUATTDRO 11:41 → P.MEDSURG 11:41
PROVIDERS: ATTEND Internal Medicine

== ENCOUNTER 2019-07-17 06:55 | Observation (INO) ==
[2019-07-17 07:39] LABS: INFLUENZA A NEGATIVE (NEGATIVE); INFLUENZA B NEGATIVE (NEGATIVE)
[2019-07-17 08:11] LABS: BASO# 0.02 X1000 (0.0-0.2); BASO% 0.2 % (0.0-0.8); EOS# 0.08 X1000 (0.0-0.7); EOS% 0.8 % (0.0-10.0); HEMATOCRIT 34.4 % (37.0-47.0); HEMOGLOBIN 11.3 g/dL (12.0-16.0); IMM GRAN# 0.03 X1000 (0.0-0.04); IMM GRAN% 0.3 % (0.0-0.5); LYMPH# 1.67 X1000 (1.2-3.4); LYMPH% 17.7 % (20.5-51.1); MCH 28.5 PG (27-31); MCHC 32.8 g/dL (33-37); MCV 86.9 FL (81-99); MONO# 0.54 X1000 (0.11-0.59); MONO% 5.7 % (1.7-9.3); MPV 9.7 FL (7.4-10.4); NEUT% 75.3 % (42.2-75.2); PLT 315 X1000 (130-400); RBC 3.96 XMIL (4.2-5.4); RDW 13.1 % (11.5-14.5); WBC 9.44 X1000 (4.8-10.8)
[2019-07-17] MEDS ORDERED: NS 1,000 ML IV ONE ×2 (08:19→10:23)
[2019-07-17] MEDS ORDERED: HUMULIN R IV ONE (08:19)
[2019-07-17] MEDS ORDERED: HUMULIN R (PARKWAY) ONE (08:21)
[2019-07-17 08:25] LABS: CALCIUM 9.4 mg/dL (8.8-10.2); CREATININE 2.1 mg/dL (0.5-0.9)
--- NOTE | 2019-07-17 08:32 | PROVIDER DOCUMENTATION ---
HPI-General Adult - General Chief Complaint: DKA ALERT Stated Complaint: BODY ACHES Time Seen by Provider: 07/17/19 07:20 Source: patient Allergies/Adverse Reactions: Patient Allergies Allergy/AdvReac Type Severity Reaction Status Date / Time No Known Allergies Allergy Verified 07/17/19 07:19 Home Medications: Home Medication List Medication Instructions Recorded Confirmed Last Taken Type Hydrocodone/APAP 7.5 mg/325 mg 1 tab PO Q8H PRN PRN 01/05/17 07/17/19 01/15/17 History [[place]mer-7.5] Aspirin 1 tab PO DAILY 05/01/17 07/17/19 Unknown History Fluticasone 50 Mcg Nasal [place] 1 spray IH DAILY PRN PRN 05/01/17 07/17/19 Unknown History [Flonase] Linaclotide [Linzess] 72 mcg PO DAILY #30 capsule 05/04/17 07/17/19 Unknown Rx Amitriptyline HCl 75 mg PO QHS 03/04/19 07/17/19 Unknown History Amlodipine Besylate 5 mg PO DAILY 03/04/19 07/17/19 Unknown History Levothyroxine [Synthroid] 150 microgm PO DAILY@0600 03/04/19 07/17/19 Unknown History Losartan Potassium 100 mg PO DAILY 03/04/19 07/17/19 Unknown History Insulin Glargine,Hum.rec.anlog 40 units SQ HS 05/12/19 07/17/19 07/16/19 History [Lantus Solostar] Multivitamins/Minerals [Centrum 1 tab PO DAILY 05/12/19 07/17/19 Unknown History Silver] Diclofenac Sodium 75 mg PO BID 07/17/19 07/17/19 Unknown History Insulin Aspart [Novolog Flexpen] 10 unit SQ 4XDAY 07/17/19 07/17/19 07/17/19 06:00 History Lorazepam 0.5 - 1 tab PO TID PRN 07/17/19 07/17/19 Unknown History Ondansetron [Zofran] 1 tab PO Q8H 07/17/19 07/17/19 Unknown History Ondansetron [Zofran] 4 mg PO Q8H PRN 07/17/19 07/17/19 Unknown History - History of Present Illness -Gen Adult Nature of Presenting Problems: Presents to the with multiple complaints. she is a very vague historian and jumps from topic to topic. She states that this morning she woke up and she "felt funny". She states that she got up and tried to walk but then her daughter told her she blacked out. She states also that her right finger is numb and when she touches both of her legs they itch. She states she talked to her PCP about this last week and he gave her medication for itching and anxiety. She states this morning she took Novolog 10U SQ. Review of Systems - Adult - REVIEW OF SYSTEMS - ADULT Constitutional: reports: see HPI Eyes: reports: no symptoms reported Ears, Nose, Mouth & Throat: reports: no symptoms reported Cardiovascular: reports: no symptoms reported Respiratory: reports: no symptoms reported Gastrointestinal: reports: no symptoms reported Genitourinary: reports: no symptoms reported Musculoskeletal: reports: see HPI Integumentary: reports: see HPI, itching Neurological: reports: see HPI Psychiatric: reports: no symptoms reported Endocrine: reports: no symptoms reported Hematologic/Lymphatic: reports: no symptoms reported Allergic/Immunologic: reports: no symptoms reported All Other Systems: Reviewed and Negative Past History - Adult - PAST MEDICAL HISTORY-ADULT Review of Records: reports: Old Records Reviewed Major Childhood Illnesses: reports: denies history Cardiovascular: reports: HTN Respiratory: reports: denies history Gastrointestinal: reports: pancreatitis Obstetrical/Gynecological: reports: denies history Genitourinary: reports: kidney disease Musculoskeletal: reports: orthopedic injury Neurological: reports: denies history Psychiatric: reports: denies history Endocrine/Immune: reports: Diabetes, thyroid disorder Other Conditions: reports: other (RA, migraines, chronic pain) - PRIOR SURGERIES/PROCEDURES Surgical/Procedure History: reports: hysterectomy, orthopedic (extremity) (toe), back/neck - IMMUNIZATION STATUS Childhood Immunizations: See Nurse Assessment Flu Vaccine: See Nurse Assessment - FAMILY HISTORY Family History: reviewed, not pertinent Physical Exam-General - PHYSICAL EXAM-ADULT Initial Vital Signs Reviewed: Yes - CONSTITUTIONAL General Appearance: appears well, alert, no apparent distress - EYES Eyes: PERRL/EOMI - HEAD, EARS, NOSE, MOUTH & THROAT HENMT: normocephalic/atraumatic - NECK Neck: supple, normal inspection - RESPIRATORY Respiratory: chest non-tender, lungs clear, normal breath sounds, no respiratory distress, no accessory muscle use - CARDIOVASCULAR Cardiovascular: normal peripheral pulses, regular rate, rhythm, no murmur - GASTROINTESTINAL (ABDOMEN) Abdominal Exam: normal bowel sounds, non tender, soft - MUSCULOSKELETAL Back Exam: normal inspection Extremity: normal gait, normal inspection, normal capillary refill - SKIN Integumentary: normal color, warm/dry - NEUROLOGIC Neurologic: grossly normal - PSYCHIATRIC Psych/Mental Status: normal mood/affect, oriented x 3 Progress - PLAN OF CARE/RESULTS Progress/Plan/Lab Results: Vital Signs - 8 hr 07/17/19 07:05 Temperature 98 F Pulse Rate 92 H Respiratory Rate 18 Blood Pressure 102/68 O2 Sat by Pulse Oximetry 97 Laboratory Results - last 24 hr 07/17/19 07/17/19 07/17/19 07:08 07:13 08:05 WBC RBC Hgb Hct MCV MCH MCHC RDW Std Deviation Plt Count MPV Immature Gran % (Auto) Neut % (Auto) Lymph % (Auto) [place] % (Auto) Eos % (Auto) Baso % (Auto) Immature Gran # (Auto) Neut # (Auto) Lymph # (Auto) [place] # (Auto) Eos # (Auto) Baso # (Auto) Sodium 128 L Potassium 5.0 Chloride 94 L Carbon Dioxide 20 L Anion Gap 14 BUN 26 H Creatinine 2.1 H Estimated GFR/1.73 m2 24 BUN/Creatinine Ratio 12 Glucose 658 H* POC Glucose 463 H Calculated Osmolality 293 Calcium 9.4 Influenza A (Rapid) NEGATIVE Influenza B (Rapid) NEGATIVE 07/17/19 08:05 WBC 9.44 RBC 3.96 L Hgb 11.3 L Hct 34.4 L MCV 86.9 MCH 28.5 MCHC 32.8 L RDW Std Deviation 13.1 Plt Count 315 MPV 9.7 Immature Gran % (Auto) 0.3 Neut % (Auto) 75.3 H Lymph % (Auto) 17.7 L [place] % (Auto) 5.7 Eos % (Auto) 0.8 Baso % (Auto) 0.2 Immature Gran # (Auto) 0.03 Neut # (Auto) 7.10 H Lymph # (Auto) 1.67 [place] # (Auto) 0.54 Eos # (Auto) 0.08 Baso # (Auto) 0.02 Sodium Potassium Chloride Carbon Dioxide Anion Gap BUN Creatinine Estimated GFR/1.73 m2 BUN/Creatinine Ratio Glucose POC Glucose Calculated Osmolality Calcium Influenza A (Rapid) Influenza B (Rapid) Orders Category Date Time Status FSBS [Finger Stick Blood Sugar (ED)] DIRECTED Care 07/17/19 07:08 Active Saline Loc NOW Care 07/17/19 08:06 Active CHEST-PORTABLE [RAD] Stat Exams 07/17/19 07:46 Taken BASIC METABOLIC PANEL [CHEM] Stat Lab 07/17/19 08:05 Completed CBC WITH ELECTRONIC DIFF [HEME] Stat Lab 07/17/19 08:[address] Stat Lab 07/17/19 07:08 Completed TROPONIN T Stat Lab 07/17/19 08:05 Received URINALYSIS W/POSS RFLX CULT [URINALYSIS] Stat Lab 07/17/19 07:45 Uncollected VBG [VENOUS BLOOD GAS] [RESP] Routine Lab 07/17/19 07:45 Ordered 0.9% Sodium Chloride Inj [Ns] 1,000 ml Med 07/17/19 08:19 Active IV 999 mls/hr Insulin Human Regular ([place] [Humulin R ([place])] Med 07/17/19 08:21 Discontinued 5 units .ROUTE .STK-MED ONE Insulin Human Regular [Humulin R] Med 07/17/19 08:19 Discontinued 5 unit IV NOW ONE EKG [EKG] Stat Ther 07/17/19 08:19 Ordered Patient with GRACIA. Cr 2.1. She has been admitted many times for this. Glucose improved but still elevated. Spoke to Dr Sanchez button inspector for hospitalist who accepted patient for OBS admission. Further orders to be placed by their team. Result Diagrams: 07/17/19 08:05 07/17/19 08:05 - EKG 1 Time of EKG reading by physician:: 08:38 EKG Read and Signed by:: Kelly Faith EKG Interpretation (*Must complete 3 of following elements*): Abnormal Rate: 90 Rhythm: NSR [place]: left QRS: other (prolonged QT) - XRAY 1 XRAY Study: Chest (EXAM: CHEST-PORTABLE HISTORY: diabetic, chills, hyperglycemia TECHNIQUE: Single view COMPARISON: 05/31/2018 FINDINGS: The lungs are well expanded. The heart is not enlarged. The vessels are not distended. There are no infiltrates. No effusion identified. IMPRESSION: Negative exam. No pneumonia. Electronically signed by Pavan Kemp 07/17/2019 8:35 AM) - CONSULTS/PCP/HOSPITALIST Notification #1 *Consult/PCP/Hospitalist*: Dr Sanchez Time Discussed: 10:15 Consult Disposition: Admit Departure - Departure Date of Disposition Decision: 07/17/19 Time of Disposition Decision: 10:20 DIAGNOSIS: Acute kidney injury, Uncontrolled diabetes mellitus Disposition: ADMITTED INPATIENT 09 Certified Medical Emergency: Emergent Condition: Stable Referrals and Follow-Ups: Jos Cade MD [Primary Care Provider] - - Critical Care Note This patient required my direct & personal management of CC.: No Attestation - Physician/ NICKY Attestation Patient care was provided by Advanced Practice Provider:: No The physician spent face to face time with patient:: Yes Advanced Practice Provider documentation review:: Supervising physician onsite and consulted in the evaluation and care of this patient. The physician did have a face to face encounter with the patient.
[2019-07-17 08:38] LABS: BE -4.1 mmoll (-2.0-2.0); BLOOD TYPE VENOUS; HCO3-(ACT) 20.7 mmoll (22-27); PCO2(98.6) 54 mmHg (40-60); PO2(98.6) 30 mmHg (30-55); SAMPLE BLOOD; SAO2 58.4 % (40.0-85.0); pH(98.6) 7.25 (7.32-7.43)
--- NOTE | 2019-07-17 08:38 | Diag Imaging Result Doc PS360 ---
EXAM: CHEST-PORTABLE HISTORY: diabetic, chills, hyperglycemia TECHNIQUE: Single view COMPARISON: 05/31/2018 FINDINGS: The lungs are well expanded. The heart is not enlarged. The vessels are not distended. There are no infiltrates. No effusion identified. IMPRESSION: Negative exam. No pneumonia. Electronically signed by Pavan Kemp 07/17/2019 8:35 AM
[2019-07-17 09:18] LABS: URINE SOURCE CLEAN CATCH
[2019-07-17 09:20] LABS: BILIRUBIN URINE NEGATIVE (NEGATIVE); BLOOD URINE NEGATIVE (NEGATIVE); COLOR YELLOW; GLUCOSE URINE >1000 mg/dL (NEGATIVE); KETONE URINE NEGATIVE (NEGATIVE); LEUKOCYTES URINE NEGATIVE (NEGATIVE); NITRITE URINE NEGATIVE (NEGATIVE); PH URINE 5.5; PROTEIN URINE TRACE mg/dL (NEGATIVE); SP GRAVITY URINE 1.024; TURBIDITY URINE CLEAR (CLEAR); UROBILINOGEN URINE NORMAL (NORMAL)
[2019-07-17 09:21] LABS: UR EPITHELIAL CELLS <10 /HPF (<10); URINE BACTERIA NEGATIVE /HPF; URINE RBC <10 /HPF (<10); URINE WBC <10 /HPF (<10)
[2019-07-17 09:37] LABS: UR AMPHETAMINES QUAL NONE DETECTED (NONE DETECT); UR BARBITUATES QUAL NONE DETECTED (NONE DETECT); UR BENZODIAZEPIN QUAL PRESUMPTIVE POSITIVE (NONE DETECT); UR COCAINE QUAL NONE DETECTED (NONE DETECT); UR METHADONE QUAL NONE DETECTED (NONE DETECT)
[2019-07-17 09:38] LABS: UR CANNABINOIDS QUAL NONE DETECTED (NONE DETECT); UR METHAMPHETAMINE QUAL NONE DETECTED (NONE DETECT); UR OPIATES QUAL PRESUMPTIVE POSITIVE (NONE DETECT); UR OXYCODONE QUAL NONE DETECTED (NONE DETECT); UR PCP QUAL NONE DETECTED (NONE DETECT); UR PROPOXYPHENE QUAL NONE DETECTED (NONE DETECT); UR TCA QUAL PRESUMPTIVE POSITIVE (NONE DETECT)
[2019-07-17 10:58] LABS: HEMOGLOBIN A1C 13.2 % (4.8-6.0)
--- NOTE | 2019-07-17 10:58 | EKG Report ---
Test Performed on : 07/17/2019 08:37:27 AM Test Reason : DIABETIC, "FEELS FUNNY" Blood Pressure : / mmHG Vent. Rate : 090 BPM Atrial Rate : 090 BPM P-R Int : 174 ms QRS Dur : 080 ms QT Int : 412 ms P-R-T Axes : 050 -38 041 degrees QTc Int : 504 ms Normal sinus rhythm. Left axis deviation Minimal voltage criteria for LVH, may be normal variant Prolonged QT Abnormal ECG When compared with ECG of 12-MAY-2019 10:16, No significant change was found Confirmed by Baltazar Danielle MD ([id number]), web editor Freida Dexter ([id number]) on 08/20/2019 12:38:14 PM
--- NOTE | 2019-07-17 11:02 | HISTORY AND PHYSICAL ---
PRIMARY CARE PHYSICIAN: Dr. Cade CHIEF COMPLAINT: Stating that she got up and tried to walk, but her daughter told her she blacked out. HISTORY OF PRESENTING ILLNESS: This is a 58-year-old female who presented to [facility] with multiple complaints and was a very vague historian, jumping from topic to topic. States she woke up and tried to walk, but her daughter told her that she" blacked out." Stated that her right finger was numb when she touches both of her legs they itch. Her workup showed a sodium of 128, BUN of 26 with a creatinine of 2.1, anion gap was 14, glucose was 658, lipase of 186. A chest x-ray that was negative so she will be admitted for further evaluation and treatment. PAST MEDICAL HISTORY: Diabetes type 2, hypertension, hypothyroidism, dyslipidemia, depression, anxiety disorder, osteoarthritis, and migraine headaches. PAST SURGICAL HISTORY: Hysterectomy and a back and neck surgery. FAMILY HISTORY: Reviewed and noncontributory. SOCIAL HISTORY: She currently lives with family. Denies any tobacco, alcohol or illicit drug use. ALLERGIES: No known drug allergies. HOME MEDICATIONS: She takes amitriptyline 75 mg p.o. at bedtime, amlodipine 5 mg p.o. daily, aspirin 81 mg p.o. daily, diclofenac 75 mg p.o. b.i.d., Flonase 1 spray nasally daily p.r.n., [place] 7.5 one p.o. q.8 hours p.r.n., NovoLog FlexPen 10 units subcutaneous 4 times daily, Lantus SoloSTAR 40 units subcutaneous at bedtime, Synthroid 150 mcg p.o. daily, Linzess 72 mcg p.o. daily. We are going to hold her lorazepam 0.5 to 1 tablet p.o. t.i.d. p.r.n., losartan 100 mg p.o. daily. Multivitamin p.o. daily. We are going to hold her Zofran 4 mg p.o. q.8 hours p.r.n. LABORATORY DATA: Showed a white blood cell count of 9.44, hemoglobin 11.3, hematocrit 34.4, platelets 315,000. ABG with venous blood showed a pH of 7.25, pCO2 54, PO2 30, bicarbonate 20.7. Sodium was 128, potassium 5, chloride 94, CO2 20, BUN of 26, creatinine 2.1, glucose 658. Troponin was negative. Lipase 186. Urinalysis was negative. Urine drug screen was presumptive positive for opiates, tricyclics and benzodiazepines. Influenza A and B were negative. Chest x- ray was a negative exam. REVIEW OF SYSTEMS: She denied any fever, chills, blurred vision, dizziness. She did state that her right finger was numb and both of her legs were itching. She denied any chest pain, coughing, shortness of breath, denied any abdominal pain, constipation, diarrhea, burning or hurting with urination. PHYSICAL EXAMINATION: VITAL SIGNS: On arrival, she had a temperature of 98 degrees, pulse 92, respirations 18, blood pressure 102/68, saturating 97% on room air. GENERAL: This is a 58-year-old female who is lying in the bed and answers questions appropriately. HEENT: Normocephalic, atraumatic. Normal ENT inspection. Oropharynx and nares are clear. EYES: Pupils are equal, round, reactive to light and accommodation. Extraocular movements are intact. NECK: Normal inspection. Normal range of motion. LUNGS: Clear to auscultation bilaterally with equal lung expansion and chest wall movement. HEART: Regular rate and rhythm. No murmurs, rubs, or gallops. ABDOMEN: Soft, nontender, nondistended. Bowel sounds are present x4 quadrants. MUSCULOSKELETAL: She had 5/5 strength x4 extremities. NEUROLOGICAL: The cranial nerves 2-12 appear grossly intact. ASSESSMENT: 1. Diabetes type 2, uncontrolled with hyperglycemia. 2. Acute kidney injury. 3. Hyponatremia. 4. Hypothyroidism. PLAN: She will be admitted to the medical unit, placed on telemetry, diabetic diet, SCDs for DVT prophylaxis. Place on normal saline [address] on pattern blood sugars with sliding scale insulin. We will continue her home medications as previously identified. We are going to check a hemoglobin A1c. Recheck CBC, BMP, in the a.m. and further orders after seen by attending. Dictated by ANÍBAL Mckeon for Antonio Sanchez MD cc: ANÍBAL Mckeon MD Adnan A. Seljuki, MD
[2019-07-17] MEDS ORDERED: ZOFRAN IV PRN (11:32)
[2019-07-17] MEDS ORDERED: FLONASE NAS PRN (11:32)
[2019-07-17] MEDS ORDERED: TYLENOL PO PRN (11:32)
[2019-07-17] MEDS: NS 1,000 ML IV SCH ×2 (12:43→18:12)
[2019-07-17] MEDS: HUMALOG (PARKWAY) SUBQ SCH ×6 (12:44→20:59)
[2019-07-17] MEDS: NORCO-7.5 PO PRN ×2 (12:49→20:58)
--- NOTE | 2019-07-17 16:53 | HISTORY AND PHYSICAL ---
ADDENDUM REPORT: Patient seen and examined by myself. Full note dictated and discussed with nurse practitioner. Patient presented to the hospital noting that she got tired and fatigued when she attempted to walk. States she almost blacked out. Upon admission, she is noted to have a markedly elevated blood sugar with A1c around 13, as well as hyponatremia and acute kidney injury. We are going to admit her to the hospital, place her on diabetic diet, sliding scale insulin, IV fluids, and we will follow. cc: Antonio Sanchez MD
[2019-07-17] MEDS: VOLTAREN PO SCH (17:48)
[2019-07-17] MEDS ORDERED: ELAVIL PO SCH (21:00)
[2019-07-17] MEDS ORDERED: LANTUS INSULIN SUBQ SCH (21:00)
[2019-07-18] MEDS: NS 1,000 ML IV SCH (02:36)
[2019-07-18] MEDS ORDERED: SYNTHROID PO SCH (06:00)
[2019-07-18] MEDS ORDERED: LINZESS PO SCH (06:00)
[2019-07-18 06:56] LABS: BASO# 0.02 X1000 (0.0-0.2); BASO% 0.3 % (0.0-0.8); EOS# 0.13 X1000 (0.0-0.7); EOS% 2.1 % (0.0-10.0); LYMPH# 2.45 X1000 (1.2-3.4); LYMPH% 39.5 % (20.5-51.1); MCH 28.5 PG (27-31); MONO# 0.43 X1000 (0.11-0.59); MONO% 6.9 % (1.7-9.3); MPV 8.3 FL (7.4-10.4); NEUT# 3.18 X1000 (1.4-6.5); NEUT% 51.2 % (42.2-75.2); PLT 245 X1000 (130-400); RBC 3.09 XMIL (4.2-5.4); RDW 13.4 % (11.5-14.5); WBC 6.21 X1000 (4.8-10.8)
[2019-07-18 06:59] LABS: HEMATOCRIT 27.5 % (37.0-47.0)
[2019-07-18 07:00] LABS: HEMOGLOBIN 8.8 g/dL (12.0-16.0)
[2019-07-18] MEDS: HUMALOG (PARKWAY) SUBQ SCH ×3 (07:17→10:24)
[2019-07-18 07:35] LABS: CALCIUM 8.1 mg/dL (8.8-10.2); CREATININE 1.4 mg/dL (0.5-0.9); POTASSIUM 4.5 mmol/L (3.5-5.1)
[2019-07-18 08:03] VITALS: BP 120/97
[2019-07-18] MEDS: VOLTAREN PO SCH (08:26)
[2019-07-18] MEDS: NORCO-7.5 PO PRN (08:34)
[2019-07-18] MEDS ORDERED: COZAAR PO SCH (09:00)
[2019-07-18] MEDS ORDERED: ASPIRIN PO SCH (09:00)
[2019-07-18] MEDS ORDERED: THERA M PLUS PO SCH (09:00)
[2019-07-18] MEDS ORDERED: NORVASC PO SCH (09:00)
--- NOTE | 2019-07-18 11:35 | DISCHARGE SUMMARY ---
ADMISSION DATE: 07/17/2019 DISCHARGE DATE: 07/18/2019 PRIMARY CARE PHYSICIAN: Dr. Cade. ADMISSION DIAGNOSES: 1. Diabetes type 2, uncontrolled with hyperglycemia. 2. Acute kidney injury. 3. Hyponatremia. 4. Hypothyroidism. DISCHARGE DIAGNOSES: 1. Diabetes type 2, uncontrolled with hyperglycemia, improved. 2. Acute kidney injury, improved. 3. Hyponatremia, resolved. 4. Hypothyroidism. SUMMARY OF FINDINGS: This is a 58-year-old, -[place] female who was a very vague historian when she came in but was found to have a sodium of 128, a BUN of 26, creatinine was 2.1, glucose was 658 with an anion gap of 14. We checked her hemoglobin A1c and it was 13.2. She was admitted, placed on pattern blood sugars with sliding scale insulin, gave her hydration. She is feeling much better this morning. Again, she is a noncompliant diabetic so it is felt that she can safely be discharged home today as her blood sugar is down this morning from 658 down to 94. DISCHARGE MEDICATIONS: Will all remain the same, as follows: Amitriptyline 50 mg p.o. at bedtime, amlodipine 5 mg p.o. daily, aspirin 81 mg p.o. daily, diclofenac 75 mg p.o. b.i.d., Flonase 1 spray nasally daily p.r.n., [place] 7.5 one p.o. q.8 hours p.r.n., NovoLog FlexPen 10 units subcutaneous 4 times daily, Lantus SoloSTAR 40 units subcutaneous at bedtime, levothyroxine 150 mcg p.o. daily, Linzess 72 mcg p.o. daily, losartan 100 mg p.o. daily, multivitamin 1 p.o. daily, Ativan 1/2 to 1 tablet of 1 mg p.o. t.i.d. p.r.n., and Zofran 4 mg p.o. q.8 hours p.r.n. FOLLOWUP: She will need to follow up with her primary care physician in 1 to 2 weeks, and call their office for an appointment. This is a 35 minute discharge. Dictated by ANÍBAL Mckeon for Antonio Sanchez MD cc: Che Patience, BLOOD TYPER MD Jos Smith MD
--- NOTE | 2019-07-18 13:58 | DISCHARGE SUMMARY ---
ADMISSION DATE: 07/17/2019 DISCHARGE DATE: 07/18/2019 The patient was admitted to the hospital with acute renal failure with a creatinine of 10.1. She was given IV fluids. Creatinine has improved down to 1.4. Her symptoms seem to have resolved. will be discharged home. cc: Antonio Sanchez MD MTDD
== END 2019-07-18 11:10 | disposition home or self-care (01) ==
LOC: P.ED 06:55 → P.MEDSURG 06:55
PROVIDERS: ATTEND Family Medicine